=== PATIENT | female | born 1975 | race Caucasian/White ===

== ENCOUNTER 2016-07-21 13:25 | Inpatient (IN) | payer OTHER ==
[~2016-07-21] VITALS: Ht 165.1 cm; Wt 93.4 kg
[~2016-07-21 13:25] MED LIST: ABILIFY 5 MG TAB5 M1 PO; ACYCLOVIR 800800 MG PO; ADVAIR HFA 45-218 GM; ALBUTEROL NEB; ALPRAZOLAM2 MG PO; AMBEREN; AMITRIPTYLINE H10 M1 PO; AMITRIPTYLINE H25 M2; AMLODIPINE BESYL5 MG PO; ANTIDEPRESSANT; APAP W/CODEINE1 TA2 PO; ASCRIPTIN 325325 MG PO; ATENOLOL 25 MG25 M1 PO; ATENOLOL 50MG T50 M1 PO; ATENOLOL 50MG T50 MG PO; ATROVENT30 ML; BENADRYL ALLERG25 MG PO; BENADRYL25 MG PO; BENTYL 20 MG TA20 M1 PO; BENZONATATE100 MG; CAPSAICIN60 GM TP; CARAFATE 11 GM/10 M1 PO; CARISOPRODOL 3350 MG PO; CELEXA 20 MG TA20 M1 PO; CELEXA 20 MG TA20 MG PO; CIPROFLOXACIN500 M1 PO; CITALOPRAM; CITALOPRAM PO; CLONAZEPAM; CLONAZEPAM 1 MG1 M1 PO; CLONAZEPAM PO; DARVOCET-N 1001 EACH PO; DEXILANT60 MG; DIAZEPAM 10 MG10 M1 PO; DIOVAN40 MG PO; EPHEDRINE IV; EPIPEN0.3 MG/0.3 IM; FIORICET 50-321 EACH PO; HYDROCODON-ACE1 EAC7 PO; HYDROXYCHLOROQ200 M1 PO; IMITREX 50 MG T50 MG PO; KEFLEX500 MG PO; LEVOTHYROXINE0.05 MG PO; LISINOPRIL10 MG; LISINOPRIL10 MG PO; LISINOPRIL2.5 MG PO; LORTAB 5 MG/5001 TA1 PO; MACROBID 100 M100 M1 PO; MAGNES; MAGNES PO; NEW BP MED; NORCO 10-325 T1 EACH; NORCO 5-325 TA1 EACH PO; NORFLEX100 MG; NORFLEX100 MG IM; NORVASC 5 MG TAB5 MG; NORVASC10 MG PO; OLANZAPINE20 MG PO; ONDANSETRON HCL4 M2 PO; ONDANSETRON ODT4 MG PO; ORPHENADRINE C100 M2 IM; PEPCID40 MG PO; PERCOCET 5-3251 EACH PO; PREDNISONE 5 MG5 MG PO; PROAIR HFA8.5 GM IH; PROTONIX40 M1 PO; PULMICORT FLE180 MCG; QVAR HFA 880 MCG/UN1 INH; REGLAN 10 MG TA10 MG PO; TAMSULOSIN HCL0.4 M1 PO; TAMSULOSIN HCL0.4 MG PO; TOPAMAX 100 MG100 MG PO; TRAMADOL 50 MG50 MG PO; VALIUM10 MG PO; VALIUM5 MG PO; VENTOLIN17 GM; VERAMYST10 GM; VERAMYST10 GM NS; VERAPAMIL E.R240 M1 PO; VERAPAMIL HCL120 M1 PO; VERAPAMIL HCL180 MG PO; VIVACTIL10 MG PO; XANAX XR2 MG PO; XOPENEX0.31 MG/3; XOPENEX0.63 MG/3; XOPENEX1.25 MG/3; ZANTAC 150MG T150 M1 PO; ZANTAC 150MG T150 MG PO; ZOFRAN ODT4 MG PO; ZOFRAN4 MG PO; ZOFRAN8 MG PO; [UNRECOGNIZED DRUG - REMARK]
[2016-07-21 13:41] VITALS: BP 146/108
[2016-07-21 14:44] LABS: URINE BLOOD 1+ (Negative); URINE COLOR YELLOW; URINE GLUCOSE-RANDOM* NEGATIVE (Negative); URINE KETONES 1+ (Negative); URINE LEUKOCYTES-REFLEX 2+ (Negative); URINE PROTEIN (DIPSTICK) 2+ (Negative); URINE SPECIFIC GRAVITY >= 1.030 (1.003-1.035)
[2016-07-21 14:44] LABS: ABSOLUTE NEUTROPHILS 6.6 thou/uL (1.4-8.2); BASOPHILS 0.6 % (0.0-2.0); EOSINOPHILS 0.1 % (0.0-3.0); HEMATOCRIT 47.7 % (37.0-47.0); HEMOGLOBIN 16.9 gm/dL (12.0-15.0); LYMPHOCYTES 17.2 % (24.0-44.0); MANUAL DIFF NO; MCH 31.8 pg (26.0-34.0); MCHC 35.3 g/dL (28.0-37.0); MONOCYTES 6.5 % (1.0-8.0); POLYS 75.6 % (36.0-66.0); RBC 5.31 mil/uL (4.20-5.00); WBC 8.7 thou/uL (4.0-11.0)
[2016-07-21 14:48] LABS: URINE BILIRUBIN 2+ (Negative)
[2016-07-21 14:50] LABS: CASTS None Seen /LPF (None Seen); CRYSTALS None Seen /LPF (None Seen); SQUAMOUS 4-10 Moderate /LPF (0-3)
[2016-07-21 14:51] LABS: URINE RBC 0-2 Rare /HPF (0-2); URINE WBC-REFLEX 6-15 Few /HPF (0-5)
[2016-07-21 14:59] LABS: ALBUMIN 4.6 g/dL (3.4-5.0); CALCIUM 9.4 mg/dL (8.5-10.1); TOTAL BILIRUBIN 0.6 mg/dL (<0.1-1.0); TOTAL PROTEIN 9.3 g/dL (6.4-8.2)
[2016-07-21 15:04] LABS: PLATELET COUNT 154 thou/uL (150-400); PLATELET ESTIMATE NORMAL
[2016-07-21 15:06] LABS: POTASSIUM 2.8 mmol/L (3.5-5.1)
[2016-07-21 16:04] VITALS: BP 130/91
[2016-07-21] MEDS ORDERED: XANAX1 MG PO (16:20)
[2016-07-21 20:00] VITALS: BP 144/91
[2016-07-21] MEDS ORDERED: OLANZAPINE20 MG PO (22:41)
[2016-07-21 23:45] VITALS: BP 149/102
[2016-07-22 04:45] VITALS: BP 151/103
[2016-07-22 08:13] VITALS: BP 155/99
[2016-07-22 08:22] LABS: ALBUMIN 3.5 g/dL (3.4-5.0); CALCIUM 8.2 mg/dL (8.5-10.1); CREATININE 0.6 mg/dL (0.6-1.0)
[2016-07-22 16:03] VITALS: BP 138/71
[2016-07-22 20:40] VITALS: BP 131/78
[2016-07-23 04:16] LABS: HEMATOCRIT 40.4 % (37.0-47.0); MCH 31.4 pg (26.0-34.0); MCHC 35.1 g/dL (28.0-37.0); MCV 89.4 fL (80.0-100.0); RBC 4.52 mil/uL (4.20-5.00); RDW 11.7 % (10.5-14.5); WBC 6.9 thou/uL (4.0-11.0)
[2016-07-23 04:19] LABS: HEMOGLOBIN 14.2 gm/dL (12.0-15.0); MANUAL DIFF YES
[2016-07-23 04:23] LABS: ALBUMIN 3.5 g/dL (3.4-5.0); CREATININE 0.6 mg/dL (0.6-1.0); DIRECT BILIRUBIN 0.1 mg/dL (<0.1-0.3); POTASSIUM 3.3 mmol/L (3.5-5.1); TOTAL BILIRUBIN 0.5 mg/dL (<0.1-1.0); TOTAL PROTEIN 7.1 g/dL (6.4-8.2)
[2016-07-23 05:13] VITALS: BP 137/83
[2016-07-23 08:10] LABS: ABSOLUTE NEUTROPHILS 4.1 thou/uL (1.4-8.2); TOTAL CELL COUNT 100
[2016-07-23 08:12] LABS: LARGE PLATELETS FEW; PLATELET COUNT 116 thou/uL (150-400)
[2016-07-23 08:30] VITALS: BP 169/107
[2016-07-23 16:16] VITALS: BP 131/83
[2016-07-23 19:28] VITALS: BP 130/79
[2016-07-24 04:16] VITALS: BP 162/95
[2016-07-24 06:39] LABS: ALBUMIN 3.5 g/dL (3.4-5.0); CALCIUM 8.5 mg/dL (8.5-10.1); CREATININE 0.4 mg/dL (0.6-1.0); PHOSPHORUS 2.7 mg/dL (2.5-4.9); POTASSIUM 3.6 mmol/L (3.5-5.1)
[2016-07-24 07:34] VITALS: BP 155/90
[2016-07-24 15:56] VITALS: BP 145/71
[2016-07-24 20:23] VITALS: BP 154/80
[2016-07-25 02:30] VITALS: BP 134/72
[2016-07-25 07:35] VITALS: BP 147/91
[2016-07-25] MEDS ORDERED: VANCOMYCIN100 MG/ML PO (11:12)
[2016-07-25] MEDS ORDERED: PERCOCET PO (11:13)
[2016-07-25 11:42] VITALS: BP 147/91
[2016-07-25 11:43] VITALS: BP 147/91
[2016-07-25 11:45] VITALS: BP 147/91
== END 2016-07-25 13:35 | disposition home or self-care (01) | DRG 372 ==
LOC: ER 13:25 → EROBS 15:27 → 3N 15:27 → 5S 07-23 12:51
PROVIDERS: Emergency Medicine; Hospitalist
PROC: 05H633Z Insertion of Infusion Device into Left Subclavian Vein, Percutaneous Approach (ICD-10-PCS; principal; 2016-07-25)
DX: A04.7 Enterocolitis due to Clostridium difficile (principal); N17.9 Acute kidney failure, unspecified; N39.0 Urinary tract infection, site not specified; K92.1 Melena; I10 Essential (primary) hypertension; F43.10 Post-traumatic stress disorder, unspecified; J45.909 Unspecified asthma, uncomplicated; M32.9 Systemic lupus erythematosus, unspecified; E87.6 Hypokalemia; F41.9 Anxiety disorder, unspecified; K31.84 Gastroparesis; M79.7 Fibromyalgia; F32.9 Major depressive disorder, single episode, unspecified; G43.909 Migraine, unspecified, not intractable, without status migrainosus; E66.9 Obesity, unspecified; Z79.899 Other long term (current) drug therapy; Z88.2 Allergy status to sulfonamides; Z90.49 Acquired absence of other specified parts of digestive tract; Z87.11 Personal history of peptic ulcer disease; Z90.710 Acquired absence of both cervix and uterus; Z90.721 Acquired absence of ovaries, unilateral; Z87.891 Personal history of nicotine dependence; Z88.6 Allergy status to analgesic agent; Z88.1 Allergy status to other antibiotic agents; Z91.040 Latex allergy status; Z88.0 Allergy status to penicillin; Z88.8 Allergy status to other drugs, medicaments and biological substances; Z91.018 Allergy to other foods; Z68.34 Body mass index [BMI] 34.0-34.9, adult
CPT/HCPCS: 10096; 10785; 27001

== ENCOUNTER 2016-09-08 18:54 | Emergency (ER) | payer OTHER ==
[~2016-09-08] VITALS: Ht 165.1 cm; Wt 86.2 kg
[~2016-09-08 18:54] MED LIST changes: +PERCOCET PO; +VANCOMYCIN100 MG/ML PO; +XANAX1 MG PO
[2016-09-08 20:25] LABS: HEMOGLOBIN 15.9 gm/dL (12.0-15.0)
[2016-09-08 20:30] LABS: HEMATOCRIT 45.5 % (37.0-47.0); MCH 32.2 pg (26.0-34.0); MCHC 35.1 g/dL (28.0-37.0); MCV 91.8 fL (80.0-100.0); RBC 4.96 mil/uL (4.20-5.00); RDW 12.5 % (10.5-14.5); WBC 5.3 thou/uL (4.0-11.0)
[2016-09-08 20:39] LABS: ALBUMIN 3.9 g/dL (3.4-5.0); DIRECT BILIRUBIN 0.1 mg/dL (<0.1-0.3); TOTAL BILIRUBIN 0.4 mg/dL (<0.1-1.0); TOTAL PROTEIN 8.3 g/dL (6.4-8.2)
[2016-09-08 21:04] LABS: CREATININE 0.7 mg/dL (0.6-1.0); POTASSIUM 3.6 mmol/L (3.5-5.1)
[2016-09-08] MEDS ORDERED: VANCOCIN 250 M250 M1 PO (22:36)
[2016-09-08] MEDS ORDERED: NORCO 5-325 TA1 EACH PO (22:40)
[2016-09-08] MEDS ORDERED: ZOFRAN ODT4 MG PO (22:40)
[2016-09-08 23:09] VITALS: BP 138/70
== END 2016-09-08 23:11 | disposition home or self-care (01) ==
LOC: ER 18:54
PROVIDERS: Emergency Medicine
DX: R10.9 Unspecified abdominal pain (principal); R19.7 Diarrhea, unspecified; I10 Essential (primary) hypertension; J45.909 Unspecified asthma, uncomplicated; Z90.49 Acquired absence of other specified parts of digestive tract; Z90.711 Acquired absence of uterus with remaining cervical stump; G43.909 Migraine, unspecified, not intractable, without status migrainosus; M32.9 Systemic lupus erythematosus, unspecified; F43.10 Post-traumatic stress disorder, unspecified; Z98.890 Other specified postprocedural states; Z87.891 Personal history of nicotine dependence; Z88.6 Allergy status to analgesic agent; Z88.1 Allergy status to other antibiotic agents; Z88.8 Allergy status to other drugs, medicaments and biological substances; Z88.2 Allergy status to sulfonamides; Z91.048 Other nonmedicinal substance allergy status; Z91.018 Allergy to other foods

== ENCOUNTER 2017-07-06 22:48 | Emergency (ER) | payer OTHER ==
[~2017-07-06] VITALS: Ht 165.1 cm; Wt 89.8 kg
[~2017-07-06 22:48] MED LIST changes: +VANCOCIN 125 M125 M1 PO; +VANCOCIN 250 M250 M1 PO
[2017-07-06 22:59] VITALS: BP 153/109
[2017-07-06] MEDS ORDERED: CELEXA40 MG PO (23:04)
[2017-07-06] MEDS ORDERED: FLEXERIL PO (23:06)
[2017-07-06] MEDS ORDERED: NORCO 5-325 TA1 EACH PO ×2 (23:31→23:39)
== END 2017-07-06 23:46 | disposition home or self-care (01) ==
LOC: ER 22:48
DX: G89.18 Other acute postprocedural pain (principal); M25.512 Pain in left shoulder; I10 Essential (primary) hypertension; M79.7 Fibromyalgia; G43.909 Migraine, unspecified, not intractable, without status migrainosus; J45.909 Unspecified asthma, uncomplicated; Z90.49 Acquired absence of other specified parts of digestive tract; G40.909 Epilepsy, unspecified, not intractable, without status epilepticus; Z88.2 Allergy status to sulfonamides; Z88.6 Allergy status to analgesic agent; Z88.0 Allergy status to penicillin; Z88.1 Allergy status to other antibiotic agents; Z91.040 Latex allergy status

== ENCOUNTER 2017-09-17 22:12 | Emergency (ER) | payer OTHER ==
[~2017-09-17] VITALS: Ht 165.1 cm; Wt 89.8 kg
--- NOTE | ~2017-09-17 | EKG ---
[address] [address] [place] [address] ELECTROCARDIOGRAM REPORT Name: CAROLANN MCLAUGHLIN [id number] Admission: 09/17/17 Attend Phys: Discharge: 09/17/17 Date of : 77 Report #: [id number] THIS REPORT FOR: //name// [facility] ED Test Date: 2017-09-17 Test Time: 22:24:18 Pat Name: CAROLANN MCLAUGHLIN Department: Room: Gender: F Stained Glass Window Designer: maggy : 1975 Requested By: Apple Webster Order Number: [id number] MD: Silvio Mcnair Measurements Intervals [place] Rate: 113 P: 45 SD: 148 QRS: 100 QRSD: 110 T: -20 QT: 350 QTc: 480 Interpretive Statements Sinus tachycardia Inferior infarct, age indeterminate Poor R wave progression Compared to ECG 03/26/2016 20:47:54 Nonspecific change in the ST and T-wave segments Electronically Signed On 09-19-2017 8:13:44 CDT by Silvio Mcnair [email or web address] <ELECTRONICALLY SIGNED> By: Silvio Mcnair MD, [facility] 09/19/17 0813 23 23 Silvio Mcnair MD, [facility] /EPI
[~2017-09-17 22:12] MED LIST changes: +CELEXA40 MG PO; +FLEXERIL PO
[2017-09-17 23:00] LABS: ABSOLUTE NEUTROPHILS 9.2 thou/uL (1.4-8.2); BASOPHILS 0.8 % (0.0-2.0); EOSINOPHILS 0.6 % (0.0-3.0); HEMATOCRIT 47.9 % (37.0-47.0); HEMOGLOBIN 16.8 gm/dL (12.0-15.0); LYMPHOCYTES 18.8 % (24.0-44.0); MCH 30.9 pg (26.0-34.0); MCV 88.4 fL (80.0-100.0); PLATELET COUNT 136 thou/uL (150-400); POLYS 72.8 % (36.0-66.0); RBC 5.42 mil/uL (4.20-5.00); RDW 12.6 % (10.5-14.5); WBC 12.6 thou/uL (4.0-11.0)
[2017-09-17 23:06] LABS: CALCIUM 8.9 mg/dL (8.5-10.1); CREATININE 0.9 mg/dL (0.6-1.0)
[2017-09-17 23:46] VITALS: BP 160/100
== END 2017-09-17 23:47 | disposition home or self-care (01) ==
LOC: ER 22:12
PROVIDERS: Emergency Medicine
DX: T78.40XA Allergy, unspecified, initial encounter (principal); F41.9 Anxiety disorder, unspecified; E87.6 Hypokalemia; M32.9 Systemic lupus erythematosus, unspecified; I10 Essential (primary) hypertension; M79.7 Fibromyalgia; G43.909 Migraine, unspecified, not intractable, without status migrainosus; J45.909 Unspecified asthma, uncomplicated; Z90.89 Acquired absence of other organs; Z90.49 Acquired absence of other specified parts of digestive tract; Z90.710 Acquired absence of both cervix and uterus; Z90.721 Acquired absence of ovaries, unilateral; Z88.8 Allergy status to other drugs, medicaments and biological substances; Z88.6 Allergy status to analgesic agent; Z88.0 Allergy status to penicillin; Z88.2 Allergy status to sulfonamides; Z91.018 Allergy to other foods; Z88.1 Allergy status to other antibiotic agents; Z91.040 Latex allergy status

== ENCOUNTER 2018-01-09 18:33 | Emergency (ER) | payer OTHER ==
[~2018-01-09] VITALS: Ht 172.7 cm; Wt 89.8 kg
[~2018-01-09 18:33] MED LIST changes: +CLONIDINE HCL0.1 MG PO; +LIORESAL 10 MG10 MG PO
[2018-01-09 19:03] LABS: ABSOLUTE NEUTROPHILS 6.3 thou/uL (1.4-8.2); BASOPHILS 1.1 % (0.0-2.0); EOSINOPHILS 0.5 % (0.0-3.0); HEMATOCRIT 43.9 % (37.0-47.0); HEMOGLOBIN 15.2 gm/dL (12.0-15.0); LYMPHOCYTES 23.6 % (24.0-44.0); MCHC 34.7 g/dL (28.0-37.0); MCV 89.3 fL (80.0-100.0); MONOCYTES 9.6 % (1.0-8.0); PLATELET COUNT 105 thou/uL (150-400); POLYS 65.2 % (36.0-66.0); RBC 4.91 mil/uL (4.20-5.00); RDW 12.1 % (10.5-14.5); WBC 9.7 thou/uL (4.0-11.0)
[2018-01-09 19:10] LABS: CALCIUM 8.9 mg/dL (8.5-10.1); CREATININE 0.6 mg/dL (0.6-1.0); POTASSIUM 4.2 mmol/L (3.5-5.1)
[2018-01-09 21:19] VITALS: BP 138/101
== END 2018-01-09 21:20 | disposition home or self-care (01) ==
LOC: ER 18:33
PROVIDERS: Emergency Medicine
DX: R42 Dizziness and giddiness (principal); T44.5X5A Adverse effect of predominantly beta-adrenoreceptor agonists, initial encounter; R25.1 Tremor, unspecified; Y92.89 Other specified places as the place of occurrence of the external cause; M32.9 Systemic lupus erythematosus, unspecified; I10 Essential (primary) hypertension; M79.7 Fibromyalgia; G43.909 Migraine, unspecified, not intractable, without status migrainosus; J45.909 Unspecified asthma, uncomplicated; Z90.89 Acquired absence of other organs; Z90.49 Acquired absence of other specified parts of digestive tract; Z90.711 Acquired absence of uterus with remaining cervical stump; Z88.8 Allergy status to other drugs, medicaments and biological substances; Z88.6 Allergy status to analgesic agent; Z88.0 Allergy status to penicillin; Z91.018 Allergy to other foods; Z88.1 Allergy status to other antibiotic agents; Z88.4 Allergy status to anesthetic agent; Z91.040 Latex allergy status

== ENCOUNTER 2018-04-27 21:35 | Emergency (ER) | payer OTHER ==
[~2018-04-27] VITALS: Ht 175.3 cm; Wt 86.2 kg
[2018-04-27 23:36] LABS: HEMATOCRIT 46.6 % (37.0-47.0); MONOCYTES 7.4 % (1.0-8.0)
[2018-04-27 23:38] LABS: ABSOLUTE NEUTROPHILS 7.1 thou/uL (1.4-8.2); BASOPHILS 0.8 % (0.0-2.0); EOSINOPHILS 0.5 % (0.0-3.0); HEMOGLOBIN 16.3 gm/dL (12.0-15.0); LYMPHOCYTES 16.1 % (24.0-44.0); MCH 31.2 pg (26.0-34.0); MCV 89.3 fL (80.0-100.0); POLYS 75.2 % (36.0-66.0); RBC 5.22 mil/uL (4.20-5.00); RDW 12.5 % (10.5-14.5); WBC 9.4 thou/uL (4.0-11.0)
[2018-04-27 23:44] LABS: ANION GAP 13 mmol/L (7-16); BUN 12 mg/dL (7-18); CHLORIDE 103 mmol/L (98-107); CO2 24 mmol/L (21-32); CREATININE 0.7 mg/dL (0.6-1.0); GLUCOSE 112 mg/dL (74-106); SODIUM 140 mmol/L (136-145)
[2018-04-27 23:52] LABS: TROPONIN-I <0.06 ng/mL (<0.06)
[2018-04-28 00:03] LABS: LARGE PLATELETS SEVERAL; PLATELET COUNT 124 thou/uL (150-400); PLATELET ESTIMATE DECREASED
[2018-04-28 02:25] VITALS: BP 164/98
--- NOTE | 2018-04-28 12:02 | EKG ---
[place] [address] [employer] [facility] [facility] [place] [address] ELECTROCARDIOGRAM REPORT Name: CAROLANN MCLAUGHLIN [facility] [id number] ������������������ Admission: 04/27/18 ������������������ Attend Phys: Discharge: 04/28/18 ������������������ Date of : 77 Report #: [id number] ����������������������������������������������������������������� [id number] THIS REPORT FOR: //name// [facility] ED Test Date: 2018-04-27 Test Time: 21:42:38 Pat Name: CAROLANN MCLAUGHLIN Department: Room: Gender: F Diver Pumper: ELÍAS : 1975 Requested By: Harmeet Felix Order Number: [id number] MD: Donnie Boss Measurements Intervals [place] Rate: 82 P: 48 NJ: 151 QRS: 94 QRSD: 118 T: 5 QT: 407 QTc: 476 Interpretive Statements Sinus rhythm left atrial enlargement Left posterior fascicular block Inferior infarct age indeterminate Poor R-wave progression Baseline wander in lead(s) I,aVL Compared to ECG 11/10/2017 20:20:06 No significant changes Electronically Signed On 04-28-2018 12:02:15 HEEL CEMENTER by Donnie Boss [email or web address] ��������������������������������������������� <ELECTRONICALLY SIGNED> ���������������������������������������� By: Donnie Boss MD ��������������������������������������������� 04/28/18 1202 41 41 Donnie Boss MD /EPI
== END 2018-04-28 02:25 | disposition home or self-care (01) ==
LOC: ER 21:35
PROVIDERS: Emergency Medicine
DX: G43.909 Migraine, unspecified, not intractable, without status migrainosus (principal); R07.89 Other chest pain; M32.9 Systemic lupus erythematosus, unspecified; I10 Essential (primary) hypertension; M79.7 Fibromyalgia; J45.909 Unspecified asthma, uncomplicated; Z88.8 Allergy status to other drugs, medicaments and biological substances; Z88.6 Allergy status to analgesic agent; Z88.0 Allergy status to penicillin; Z88.2 Allergy status to sulfonamides; Z91.018 Allergy to other foods; Z88.1 Allergy status to other antibiotic agents; Z88.4 Allergy status to anesthetic agent; Z91.040 Latex allergy status; Z90.89 Acquired absence of other organs; Z90.49 Acquired absence of other specified parts of digestive tract; Z90.711 Acquired absence of uterus with remaining cervical stump; Z90.721 Acquired absence of ovaries, unilateral

== ENCOUNTER 2018-06-15 13:55 | Emergency (ER) | payer OTHER ==
[~2018-06-15] VITALS: Ht 165.1 cm; Wt 85.7 kg
[2018-06-15 14:46] LABS: ABSOLUTE NEUTROPHILS 4.2 thou/uL (1.4-8.2); BASOPHILS 0.3 % (0.0-2.0); EOSINOPHILS 0.8 % (0.0-3.0); HEMATOCRIT 41.3 % (37.0-47.0); HEMOGLOBIN 14.1 gm/dL (12.0-15.0); LYMPHOCYTES 23.7 % (24.0-44.0); MCH 30.6 pg (26.0-34.0); MCHC 34.2 g/dL (28.0-37.0); MCV 89.4 fL (80.0-100.0); MONOCYTES 9.9 % (1.0-8.0); POLYS 65.3 % (36.0-66.0); RBC 4.62 mil/uL (4.20-5.00); RDW 12.7 % (10.5-14.5); WBC 6.5 thou/uL (4.0-11.0)
[2018-06-15 14:55] LABS: CALCIUM 8.9 mg/dL (8.5-10.1); CREATININE 0.7 mg/dL (0.6-1.0); POTASSIUM 3.8 mmol/L (3.5-5.1)
[2018-06-15 15:01] LABS: ALBUMIN 3.4 g/dL (3.4-5.0); TOTAL BILIRUBIN 0.3 mg/dL (<0.1-1.0); TOTAL PROTEIN 7.2 g/dL (6.4-8.2)
[2018-06-15 15:06] LABS: PLATELET COUNT 100 thou/uL (150-400)
[2018-06-15 16:10] LABS: AMP/METHAMP Negative (Negative); BARBITURATES Negative (Negative); BENZODIAZEPINES POSITIVE (Negative); COCAINE Negative (Negative); METHADONE Negative (Negative); OPIATES Negative (Negative); PCP Negative (Negative)
[2018-06-15] MEDS ORDERED: LISINOPRIL20 MG PO (17:13)
[2018-06-15] MEDS ORDERED: NORCO 5-325 TA1 EACH PO (18:01)
[2018-06-15 18:06] VITALS: BP 101/67
--- NOTE | 2018-06-16 08:23 | EKG ---
[place] [address] [facility] [place] [address] ELECTROCARDIOGRAM REPORT Name: CAROLANN MCLAUGHLIN [facility] [id number] ������������������ Admission: 06/15/18 ������������������ Attend Phys: Discharge: 06/15/18 ������������������ Date of : 77 Report #: [id number] ����������������������������������������������������������������� [id number] THIS REPORT FOR: //name// [facility] ED Test Date: 2018-06-15 Test Time: 15:20:52 Pat Name: CAROLANN MCLAUGHLIN Department: Room: Gender: F Amusement Machine Mechanic: kf : 1975 Requested By: Douglas Solis Order Number: [id number] MD: Kofi Williamson Measurements Intervals [place] Rate: 63 P: 39 AR: 161 QRS: 64 QRSD: 118 T: 13 QT: 443 QTc: 454 Interpretive Statements Sinus rhythm Probable left atrial enlargement Nonspecific intraventricular conduction delay Inferior infarct, old Compared to ECG 04/27/2018 21:42:38 Intraventricular conduction delay now present Left posterior fascicular block no longer present Poor R-wave progression no longer present Myocardial infarct finding still present Electronically Signed On 06-16-2018 8:23:03 CDT by Kofi Williamson [email or web address] ��������������������������������������������� <ELECTRONICALLY SIGNED> ���������������������������������������� By: Kofi Williamson MD ��������������������������������������������� 06/16/18 0823 1520 1520 Kofi Williamson MD /EPI
== END 2018-06-15 18:07 | disposition home or self-care (01) ==
LOC: ER 13:55
PROVIDERS: Physician Assistant
DX: R44.0 Auditory hallucinations (principal); R44.1 Visual hallucinations; F41.9 Anxiety disorder, unspecified; M32.9 Systemic lupus erythematosus, unspecified; I10 Essential (primary) hypertension; M79.7 Fibromyalgia; G43.909 Migraine, unspecified, not intractable, without status migrainosus; J45.909 Unspecified asthma, uncomplicated; G40.909 Epilepsy, unspecified, not intractable, without status epilepticus; Z79.899 Other long term (current) drug therapy; Z88.0 Allergy status to penicillin; Z88.1 Allergy status to other antibiotic agents; Z88.2 Allergy status to sulfonamides; Z88.8 Allergy status to other drugs, medicaments and biological substances; Z91.018 Allergy to other foods; Z88.5 Allergy status to narcotic agent; Z91.040 Latex allergy status

== ENCOUNTER 2018-09-08 17:10 | Emergency (ER) | payer OTHER ==
[~2018-09-08] VITALS: Ht 162.6 cm; Wt 89.8 kg
[~2018-09-08 17:10] MED LIST changes: +LISINOPRIL20 MG PO
[2018-09-08 18:10] LABS: ANION GAP 10 mmol/L (7-16); BUN 11 mg/dL (7-18); CALCIUM 8.5 mg/dL (8.5-10.1); CHLORIDE 105 mmol/L (98-107); CO2 21 mmol/L (21-32); CREATININE 0.6 mg/dL (0.6-1.0); GLUCOSE 152 mg/dL (74-106); POTASSIUM 4.3 mmol/L (3.5-5.1); SODIUM 136 mmol/L (136-145)
[2018-09-08 18:21] LABS: ALBUMIN 3.1 g/dL (3.4-5.0); MAGNESIUM 1.9 mg/dL (1.8-2.4); SALICYLATE < 2.8 mg/dL (2.8-20.0); SGOT 30 U/L (15-37); TOTAL BILIRUBIN 0.2 mg/dL (<0.1-1.0); TOTAL PROTEIN 7.1 g/dL (6.4-8.2); TROPONIN-I <0.06 ng/mL (<0.06)
[2018-09-08 18:35] LABS: SGPT 52 U/L (30-65)
[2018-09-08 18:37] LABS: URINE BILIRUBIN NEGATIVE (Negative); URINE BLOOD NEGATIVE (Negative); URINE CLARITY CLEAR; URINE COLOR YELLOW; URINE GLUCOSE-RANDOM* NEGATIVE (Negative); URINE KETONES NEGATIVE (Negative); URINE LEUKOCYTES-REFLEX NEGATIVE (Negative); URINE NITRITE-REFLEX NEGATIVE (Negative); URINE PROTEIN (DIPSTICK) NEGATIVE (Negative); URINE SPECIFIC GRAVITY >= 1.030 (1.005-1.035); URINE UROBILINOGEN 0.2 E.U./dl (0.2-1.0)
[2018-09-08 18:45] LABS: AMP/METHAMP Negative (Negative); BARBITURATES Negative (Negative); BENZODIAZEPINES POSITIVE (Negative); COCAINE Negative (Negative); METHADONE Negative (Negative); OPIATES Negative (Negative); PCP Negative (Negative)
[2018-09-08 19:12] LABS: HEMATOCRIT 40.4 % (37.0-47.0); HEMOGLOBIN 13.8 gm/dL (12.0-15.0); MCH 30.7 pg (26.0-34.0); MCHC 34.1 g/dL (28.0-37.0); PLATELET COUNT 198 thou/uL (150-400); RBC 4.49 mil/uL (4.20-5.00); RDW 11.8 % (10.5-14.5); WBC 4.9 thou/uL (4.0-11.0)
[2018-09-08 19:31] VITALS: BP 147/81
[2018-09-08 19:37] LABS: ABSOLUTE NEUTROPHILS 2.9 thou/uL (1.4-8.2); LARGE PLATELETS FEW
--- NOTE | 2018-09-09 11:13 | EKG ---
[facility] [address] [place] [address] ELECTROCARDIOGRAM REPORT Name: CAROLANN MCLAUGHLIN [facility] [id number] ������������������ Admission: 09/08/18 ������������������ Attend Phys: Discharge: 09/08/18 ������������������ Date of : 77 Report #: [id number] ����������������������������������������������������������������� [id number] THIS REPORT FOR: //name// [facility] ED Test Date: 2018-09-08 Test Time: 17:30:47 Pat Name: CAROLANN MCLAUGHLIN Department: Room: Gender: F Seeing Eye Dog Teacher: TABATHA : 1975 Requested By: Edward Crawford Order Number: [id number] MD: Silvio Mcnair Measurements Intervals [place] Rate: 64 P: 45 AL: 167 QRS: 70 QRSD: 114 T: 62 QT: 435 QTc: 449 Interpretive Statements Sinus rhythm Small inferior Q waves Nonspecific intraventricular conduction delay Baseline wander in lead(s) V2 Compared to ECG 06/15/2018 15:20:52 No significant change was found Electronically Signed On 09-09-2018 11:13:15 CDT by Silvio Mcnair [email or web address] ��������������������������������������������� <ELECTRONICALLY SIGNED> ���������������������������������������� By: Silvio Mcnair MD, [facility] ��������������������������������������������� 09/09/18 1113 1730 1730 Silvio Mcnair MD, [facility] /EPI
== END 2018-09-08 20:10 | disposition home or self-care (01) ==
LOC: ER 17:10
PROVIDERS: Emergency Medicine
DX: T46.5X1A Poisoning by other antihypertensive drugs, accidental (unintentional), initial encounter (principal); T42.4X1A Poisoning by benzodiazepines, accidental (unintentional), initial encounter; T44.7X1A Poisoning by beta-adrenoreceptor antagonists, accidental (unintentional), initial encounter; M32.9 Systemic lupus erythematosus, unspecified; I10 Essential (primary) hypertension; M79.7 Fibromyalgia; J45.909 Unspecified asthma, uncomplicated; G43.909 Migraine, unspecified, not intractable, without status migrainosus; Z90.89 Acquired absence of other organs; Z90.49 Acquired absence of other specified parts of digestive tract; Z90.711 Acquired absence of uterus with remaining cervical stump; Z90.721 Acquired absence of ovaries, unilateral; Z88.8 Allergy status to other drugs, medicaments and biological substances; Z88.6 Allergy status to analgesic agent; Z88.0 Allergy status to penicillin; Z88.2 Allergy status to sulfonamides; Z88.1 Allergy status to other antibiotic agents; Z91.040 Latex allergy status; Z91.018 Allergy to other foods; Y92.89 Other specified places as the place of occurrence of the external cause

== ENCOUNTER 2018-09-17 15:51 | Emergency (ER) | payer OTHER ==
[~2018-09-17] VITALS: Ht 162.6 cm; Wt 86.2 kg
[2018-09-17 18:23] VITALS: BP 139/79
[2018-09-17] MEDS ORDERED: NORCO 5-325 TA1 EAC1 PO (18:34)
== END 2018-09-17 19:04 | disposition home or self-care (01) ==
LOC: ER 15:51
DX: S16.1XXA Strain of muscle, fascia and tendon at neck level, initial encounter (principal); I10 Essential (primary) hypertension; M79.7 Fibromyalgia; G43.909 Migraine, unspecified, not intractable, without status migrainosus; J45.909 Unspecified asthma, uncomplicated; G40.909 Epilepsy, unspecified, not intractable, without status epilepticus; Z90.49 Acquired absence of other specified parts of digestive tract; Z90.710 Acquired absence of both cervix and uterus; Z88.0 Allergy status to penicillin; Z88.2 Allergy status to sulfonamides; Z88.6 Allergy status to analgesic agent; Z88.8 Allergy status to other drugs, medicaments and biological substances; X58.XXXA Exposure to other specified factors, initial encounter; Y93.89 Activity, other specified; Y92.89 Other specified places as the place of occurrence of the external cause; Y99.8 Other external cause status

== ENCOUNTER 2018-10-05 | Emergency (ER) | payer OTHER ==
[~2018-10-05] VITALS: Ht 165.1 cm; Wt 89.8 kg
[~2018-10-05] MED LIST changes: +NORCO 5-325 TA1 EAC1 PO
[2018-10-05] MEDS ORDERED: CELEXA20 MG PO (00:21)
[2018-10-05] MEDS ORDERED: DIPHENHIST50 MG PO (00:22)
[2018-10-05] MEDS ORDERED: CARVEDILOL12.5 MG (00:23)
[2018-10-05 00:53] LABS: ABSOLUTE NEUTROPHILS 4.4 thou/uL (1.4-8.2); BASOPHILS 0.3 % (0.0-2.0); EOSINOPHILS 1.1 % (0.0-3.0); HEMATOCRIT 40.8 % (37.0-47.0); HEMOGLOBIN 13.8 gm/dL (12.0-15.0); LYMPHOCYTES 24.2 % (24.0-44.0); MCH 30.6 pg (26.0-34.0); MCHC 33.9 g/dL (28.0-37.0); MCV 90.3 fL (80.0-100.0); MONOCYTES 9.9 % (1.0-8.0); PLATELET COUNT 121 thou/uL (150-400); POLYS 64.5 % (36.0-66.0); RBC 4.51 mil/uL (4.20-5.00); RDW 11.9 % (10.5-14.5); WBC 6.9 thou/uL (4.0-11.0)
[2018-10-05 01:02] LABS: ANION GAP 9 mmol/L (7-16); BUN 13 mg/dL (7-18); CALCIUM 8.9 mg/dL (8.5-10.1); CHLORIDE 102 mmol/L (98-107); CO2 24 mmol/L (21-32); CREATININE 0.7 mg/dL (0.6-1.0); GLUCOSE 207 mg/dL (74-106); POTASSIUM 4.2 mmol/L (3.5-5.1); SODIUM 135 mmol/L (136-145)
[2018-10-05 01:02] LABS: URINE BILIRUBIN NEGATIVE (Negative); URINE BLOOD NEGATIVE (Negative); URINE CLARITY CLOUDY; URINE COLOR YELLOW; URINE GLUCOSE-RANDOM* 2+ (Negative); URINE KETONES NEGATIVE (Negative); URINE LEUKOCYTES-REFLEX NEGATIVE (Negative); URINE NITRITE-REFLEX NEGATIVE (Negative); URINE PROTEIN (DIPSTICK) NEGATIVE (Negative); URINE SPECIFIC GRAVITY >= 1.030 (1.005-1.035); URINE UROBILINOGEN 0.2 E.U./dl (0.2-1.0)
[2018-10-05] MEDS ORDERED: TRESIBA100 UNIT/1 SUBQ (01:05)
[2018-10-05 01:08] LABS: ALBUMIN 3.2 g/dL (3.4-5.0); DIRECT BILIRUBIN < 0.1 mg/dL (<0.1-0.3); LIPASE 122 U/L (73-393); SGOT 18 U/L (15-37); SGPT 36 U/L (30-65); TOTAL BILIRUBIN 0.2 mg/dL (<0.1-1.0); TOTAL PROTEIN 7.4 g/dL (6.4-8.2)
[2018-10-05 02:24] VITALS: BP 134/72
== END 2018-10-05 02:26 | disposition home or self-care (01) ==
LOC: ER
PROVIDERS: Emergency Medicine
DX: E11.65 Type 2 diabetes mellitus with hyperglycemia (principal); I10 Essential (primary) hypertension; J45.909 Unspecified asthma, uncomplicated; G43.909 Migraine, unspecified, not intractable, without status migrainosus; M79.7 Fibromyalgia; M32.9 Systemic lupus erythematosus, unspecified; Z90.49 Acquired absence of other specified parts of digestive tract; Z90.710 Acquired absence of both cervix and uterus; Z90.89 Acquired absence of other organs; Z79.4 Long term (current) use of insulin; Z88.0 Allergy status to penicillin; Z88.2 Allergy status to sulfonamides; Z91.040 Latex allergy status; Z88.1 Allergy status to other antibiotic agents; Z88.6 Allergy status to analgesic agent; Z91.018 Allergy to other foods; Z88.8 Allergy status to other drugs, medicaments and biological substances

== ENCOUNTER 2018-10-30 04:11 | Inpatient (IN) | payer OTHER ==
[~2018-10-30] VITALS: Ht 165.1 cm; Wt 103.9 kg
[2018-10-30] VITALS (9 sets, daily range): BP systolic 161–188; BP diastolic 75–114
[~2018-10-30 04:11] MED LIST changes: +CARVEDILOL12.5 MG; +CELEXA20 MG PO; +DIPHENHIST50 MG PO; +TRESIBA100 UNIT/1 SUBQ
--- NOTE | 2018-10-30 04:19 | NUR ---
NOTIFIED SPOUSE TO BRING MEDICATIONS IN, EMS DID NOT TAKE LOOK AT MEDS ARE UNAWARE OF ANTISEIZURE MEDS. PT CANNOT VERBALIZE NAMES OF MEDICATIONS
[2018-10-30] MEDS ORDERED: HUMALOG100 UNIT/1 SUBQ (04:32)
[2018-10-30] MEDS ORDERED: REDNESS RELIEVE15 ML OPHTHALMIC (04:33)
[2018-10-30] MEDS ORDERED: AYR50 ML INH (04:35)
[2018-10-30] MEDS ORDERED: ZOFRAN ODT4 MG PO (04:35)
[2018-10-30 05:05] LABS: ABSOLUTE NEUTROPHILS 10.4 thou/uL (1.4-8.2); BASOPHILS 0.5 % (0.0-2.0); EOSINOPHILS 0.1 % (0.0-3.0); HEMATOCRIT 43.6 % (37.0-47.0); HEMOGLOBIN 14.7 gm/dL (12.0-15.0); LYMPHOCYTES 11.4 % (24.0-44.0); MCH 30.2 pg (26.0-34.0); MCHC 33.8 g/dL (28.0-37.0); MCV 89.4 fL (80.0-100.0); MONOCYTES 7.7 % (1.0-8.0); PLATELET COUNT 152 thou/uL (150-400); POLYS 80.3 % (36.0-66.0); RBC 4.88 mil/uL (4.20-5.00); RDW 12.4 % (10.5-14.5); WBC 12.9 thou/uL (4.0-11.0)
[2018-10-30 05:20] LABS: ANION GAP 17 mmol/L (7-16); BUN 15 mg/dL (7-18); CALCIUM 9.3 mg/dL (8.5-10.1); CHLORIDE 102 mmol/L (98-107); CO2 20 mmol/L (21-32); CREATININE 0.9 mg/dL (0.6-1.0); GLUCOSE 197 mg/dL (74-106); POTASSIUM 3.8 mmol/L (3.5-5.1); SODIUM 139 mmol/L (136-145)
[2018-10-30 05:29] LABS: MAGNESIUM 2.5 mg/dL (1.8-2.4); TROPONIN-I <0.06 ng/mL (<0.06)
[2018-10-30 05:49] LABS: LARGE PLATELETS OCCASIONAL
[2018-10-30 06:00] LABS: AMP/METHAMP Negative (Negative); BARBITURATES Negative (Negative); BENZODIAZEPINES POSITIVE (Negative); COCAINE Negative (Negative); METHADONE Negative (Negative); OPIATES Negative (Negative); PCP Negative (Negative)
--- NOTE | 2018-10-30 16:49 | NUR ---
ASSUMED CARE OF PATIENT AROUND 0900 WHEN PATIENT WAS ADMITTED TO THE FLOOR. PATIENT ADMITTED FOR SEEMINGLY PSUEDO-SEIZURES. PATIENT HAS TREMORS IN LEFT LEG AND REFRAINS FROM USING LEFT HAND. PATIENT DESCRIBED DECREASED SENSATION ON HER LEFT LATERAL SIDE ON INITIAL ASSESSMENT. PATIENT'S AND DAUGHTER VISITED TODAY. NEUROLOGY WAS CONSULTED AND PHYSICIAN SAID CLIENT IS NOT HAVING SEIZURES AND ORDERED LUMBAR CT FOR REPORTED BACK PAIN. LUMBAR CT DIDN'T SHOW ANYTHING SIGNIFICANT. PATIENT WAS AT [facility] A WEEK AGO FOR BLOOD PRESSURE ISSUES. REQUEST FOR RECORDS WAS FAXED TO [facility] TO SEARCH FOR FURTHER DETAILS.
[2018-10-31] VITALS (8 sets, daily range): BP systolic 153–193; BP diastolic 63–105
--- NOTE | 2018-10-31 00:45 | NUR ---
ASSUMED CARE OF PATIENT AT 1900. BP ELEVATED, HR ELEVATED. NURSE PRACTITIONER NOTIFIED. ORDER FOR LOPRESSOR OBTAINED. HR REDUCED SLIGHTLY. CONTINUED TO MONITOR PATIENT. ASKED WHEN SHE HAD VOIDED LAST, STATES IT WAS IN THE MORNING. BLADDER SCAN SHOWED GREATER THAN 500 ML. PATIENT AGREEABLE TO BEDPAN SINCE SHE HAS LITTLE TO NO STRENGTH IN LEFT LEG. VOIDED 300 ML. WILL BLADDER SCAN AGAIN IF UNABLE TO VOID WITHOUT RESULTS. STATES SHE TAKES 4 MG OF XANAX, HOWEVER HAS NOT BEEN UNABLE TO TAKE IT CONSISTENTLY DUE TO VOMITTING. DOES SAY SHE HAS BEEN TAKING HER BLOOD PRESSURE MEDICATIONS WITHOUT INCIDENT. IS VERY TEARFUL AND DOESN'T UNDERSTAND WHY HER MEDS ARE BEING CHANGED CONSTANTLY. STATES THAT HER BELIEVES SHE HAS SERATONIN SYNDROME. DISCUSSED COMMON SYMPTOMS. PATIENT STATES SHE HAS BEEN OFF AND ON HER CYMBALTA. WILL CONTINUE TO MONITOR HR AND BP WELL URINE OUTPUT.
[2018-10-31 05:33] LABS: CALCIUM 8.7 mg/dL (8.5-10.1); CREATININE 0.4 mg/dL (0.6-1.0)
[2018-10-31 05:47] LABS: POTASSIUM 4.1 mmol/L (3.5-5.1)
--- NOTE | 2018-10-31 09:10 | EKG ---
[address] [place] [address] ELECTROCARDIOGRAM REPORT Name: CAROLANN MCLAUGHLIN Room #: 362-P ADM IN M.R.#: [id number] Admission: 10/30/18 Attend Phys: Yoanna Johnson MD Discharge: Date of : 77 Report #: [id number] THIS REPORT FOR: //name// [facility] ED Test Date: 2018-10-30 Test Time: 05:53:33 Pat Name: CAROLANN MCLAUGHLIN Department: Room: 362 Gender: F Flight Tower Dispatcher: walter ordonez : 1975 Requested By: Harmeet Felix Order Number: [id number] MD: Kofi Williamson Measurements Intervals [place] Rate: 121 P: 57 AK: 111 QRS: 100 QRSD: 103 T: 41 QT: 434 QTc: 616 Interpretive Statements Sinus tachycardia Left posterior fascicular block Consider left ventricular hypertrophy Electronically Signed On 10-31-2018 9:10:07 CDT by Kofi Williamson [email or web address] <ELECTRONICALLY SIGNED> By: Kofi Williamson MD 10/31/18 0910 0553 0553 Kofi Williamson MD /THALIA
[2018-10-31 09:15] LABS: HEMOGLOBIN 14.7 gm/dL (12.0-15.0); MCH 30.5 pg (26.0-34.0); MCHC 34.2 g/dL (28.0-37.0); MCV 89.2 fL (80.0-100.0); RBC 4.83 mil/uL (4.20-5.00); RDW 12.8 % (10.5-14.5); WBC 11.4 thou/uL (4.0-11.0)
--- NOTE | 2018-10-31 17:52 | NUR ---
PT VERY WEAK...REPORTS WEAKNESS TO LT LEG SINCE ADMIT...MRI NEG...PT WORKED WITH PATIENT AND SHE WAS VERY TACHCARDIC 130'S...
[2018-11-01 03:41] VITALS: BP 146/77
[2018-11-01 05:36] LABS: HEMATOCRIT 41.3 % (37.0-47.0); HEMOGLOBIN 14.3 gm/dL (12.0-15.0); MCH 30.8 pg (26.0-34.0); MCHC 34.6 g/dL (28.0-37.0); MCV 88.9 fL (80.0-100.0); RBC 4.65 mil/uL (4.20-5.00); RDW 12.5 % (10.5-14.5); WBC 7.8 thou/uL (4.0-11.0)
[2018-11-01 05:47] LABS: CALCIUM 8.5 mg/dL (8.5-10.1); CREATININE 0.5 mg/dL (0.6-1.0); POTASSIUM 3.2 mmol/L (3.5-5.1)
--- NOTE | 2018-11-01 06:43 | NUR ---
ASSUMED CARE AT 1900. PT LETHARGIC BUT EASILY AROUSEABLE. C/O PAIN IN LEFT LEG; PLACED LIDODERM PATCH TO LEFT THIGH. DENIES SOB OR NAUSEA. FALL AND SEIZURE PRECAUTIONS IN PLACE. HAS BEEN SR ON TELE, HR RUNS 80'S EXCEPT WITH ANY ACTIVITY, AND SHE TACHS UP TO 130'S; TAKES A FEW MINUTES TO RECOVER, SITTING IN THE 110-120 REGION FOR SEVERAL MINUTES BEFORE DROPPING BACK BELOW 100. ENCOURAGED PT TO GET UP TO BSC TO FULLY EMPTY BLADDER. HS BLOOD SUGAR 121, NO INSULIN GIVEN. AM LABS SHOWED LOW POTASSIUM, OBTAINED ORDER FOR REPLACEMENT. NO OTHER CONCERNS, WILL CONTINUE TO MONITOR.
[2018-11-01 07:45] VITALS: BP 151/91
--- NOTE | 2018-11-01 08:38 | NUR ---
ASSESSMENT: CM REVIEWED CHART AND MET WITH PATIENT AT THE BEDSIDE. PT IS ALERT AND ORIENTED X4. PT WAS ADMITTED FOR POSSIBLE SEIZURE. EEG WAS DONE AND UNREMARKABLE. PT IS STILL HAVING SOME LEFT LEG WEAKNESS AND WORKING WITH PHYSICAL THERAPY. PT REPORTS LIVING IN AN APT WITH HER DAUGHTER AND . PT REPORTS ABOUT 14 STEPS WITH HANDRAILS TO ENTER THE APT AND NO STEPS ONCE INSIDE. PT REPORTS AMBULATING INDEPENDENTLY AND DOES NOT HAVE ANY DME. PT REPORTS SHE HAS NOT HAD HH IN THE PAST OR BEEN TO REHAB. CM DISCUSSED ROLE. PT DOES NOT FEEL SHE WILL HAVE ANY NEEDS. CM WILL SEE HOW PATIENT PROGRESSES WITH THERAPY AND ASSIST NEEDED.
[2018-11-01 12:08] VITALS: BP 122/75
[2018-11-01 16:46] VITALS: BP 134/54
[2018-11-01 19:27] VITALS: BP 150/68
[2018-11-02 03:37] VITALS: BP 130/78
[2018-11-02 06:14] LABS: CREATININE 0.5 mg/dL (0.6-1.0); TOTAL BILIRUBIN 0.3 mg/dL (<0.1-1.0); TOTAL PROTEIN 6.5 g/dL (6.4-8.2)
--- NOTE | 2018-11-02 07:10 | NUR ---
ASSUMED CARE AT 1900. PT REPORTS MODERATE PAIN IN LEFT THIGH, BUT STATES SHE IS TRYING TO "WORK THROUGH IT." LIDOCAINE PATCH APPLIED AT HS. DENIES SOB OR NAUSEA. UP TO TOILET WITH MINIMAL ASSIST. ASKED FOR SNACK AT HS, GIVEN SANDWICH BOX; BLOOD SUGAR 136, NO TREATMENT INDICATED. IV FLUIDS INFUSING OVERNIGHT. NO OTHER CONCERNS, SHIFT REPORT GIVEN AT 0700.
[2018-11-02 07:36] VITALS: BP 159/108
[2018-11-02 12:06] VITALS: BP 99/57
--- NOTE | 2018-11-02 14:00 | NUR ---
PATIENT TRANSFERRED FROM [facility], REPORT RECEIVED FROM MICHAEL/RN. PATIENT ALERT AND ORIENTED X 4. PATIENT UP SBA. PATIENT HAS RIGHT FOREARM IV WITH NS AT 125CC/HR. PATIENT C/O DISCOMFORT WITH LEFT THIGH, TYLENOL ORDERED PRN, NOTIFIED DR NARANJO,FOR PAIN MEDS SHE STATES GIVE TYLENOL AT THIS TIME, NO NEW ORDERS RECEIVED. LIDOCAINE PATCH APPLIED TO LEFT THIGH AT HS. BLOOD SUGAR MONITORING ORDER, S/S INSULIN GIVEN NEEDED. WILL CONTINUE TO MONITOR.
[2018-11-02] MEDS ORDERED: AMLODIPINE BESY10 MG PO (14:40)
[2018-11-02] MEDS ORDERED: MIRALAX17 GM PO (14:41)
[2018-11-02] MEDS ORDERED: FOLIC ACID 1 MG1 MG PO (14:42)
[2018-11-02] MEDS ORDERED: B-12500 MCG PO (14:42)
[2018-11-02] MEDS ORDERED: NORCO 5-325 TA1 EAC1 PO (14:43)
[2018-11-02] MEDS ORDERED: CYCLOBENZAPRINE5 MG PO (14:44)
[2018-11-02] MEDS ORDERED: LIDODERM1 EACH TRANSDERM (14:45)
[2018-11-02] MEDS ORDERED: CLONIDINE HCL0.3 M3 PO (18:23)
[2018-11-02] MEDS ORDERED: LOTENSIN20 MG PO (18:23)
[2018-11-02 19:31] VITALS: BP 99/57
--- NOTE | 2018-11-02 20:07 | NUR ---
PATIENT DISCHARGED TO HOME, ALL SCRIPTS AND DISCHARGE PAPERWORK SENT WITH THE PATIENT, ALL PERSONAL BELONGINGS SENT WITH THE PATIENT. RIGHT FOREARM IV DISCONTINUED PRIOR TO DISCHARGE.
[2018-11-03 01:08] LABS: GLYCOHEMOGLOBIN (HGB A1C) 7.1 % (4.8-5.6)
--- NOTE | 2018-11-03 11:06 | HC ---
[facility] [place] [address] CONSULTATION Name: CAROLANN MCLAUGHLIN Paty Room #: 453-P [facility] IN M.R.#: [id number] Admission: 10/30/18 Attend Phys: Yoanna Johnson MD Discharge: 11/02/18 Date of : 77 Report #: [id number] THIS REPORT FOR: //name// CC: Thierry Johnson CHIEF COMPLAINT: Diffuse low back and left lower extremity pain and weakness with history of seizure, anxiety and PTSD and recent fall. This patient was admitted on 10/30/2018 after her discovered her somewhat unresponsive on their bed. She subsequently stated she tried to retrieve a large mirror which was falling from the wall and sustained some sort of stress to her back and legs. I note a complex history including history of seizures, anxiety, PTSD and chronic disability. She was recently admitted at [facility] for seizures and/or chronic low back pain. HISTORY OF PRESENT ILLNESS: At the time of this evaluation, she apparently presented with some confusion and some jerking movements of the lower extremity and her tentative diagnosis was seizure. She had been evaluated by Neurology and felt not to have an active seizure disorder at this time. She has had CT scan of the back, which shows moderate multilevel degenerative change without evidence of fracture or disk herniation. I have been asked to see her for evaluation of possible orthopedic injuries involving the left lower extremity. At the time of my evaluation, she is heavy, deconditioned and poorly cooperative. She is sitting upright in bed and moving both lower extremities well. She seems to have a normal movement of the left hip, knee and ankle. She notes some mild discomfort diffusely in the left thigh, but there is no bruising or swelling. She has minimal discomfort with movement of the left knee, which seems stable and well aligned. The calf reveals no bruising or swelling. She has good movement of the left foot and toes in dorsiflexion and plantar flexion. OBJECTIVE: Neurologic exam appears to be normal. In summary, I believe this patient has significant chronic symptoms and some generalized symptom magnification as a result of anxiety and PTSD. I see no evidence of a significant structural injury involving either a bony injury nor a significant soft tissue injury. She may have a minor sprain or strain of the left thigh with some muscular irritability. This is not severe and would not require ongoing hospital admission. I understand that she probably does not have an active seizure process at this point, but would defer that issue to the neurologist. From an orthopedic surgical standpoint, there is really no evidence of low back injury or disk injury or radiculopathy. I think conservative management with physical therapy and activity would be most appropriate. She can probably be managed most effectively by her primary care [address] [address] CONSULTATION Name: ARNOLDOCAROLANN Paty Room #: 453-P [facility] IN M.R.#: [id number] Admission: 10/30/18 Attend Phys: Yoanna Johnson MD Discharge: 11/02/18 Date of : 77 Report #: [id number] physician and psychiatrist as an outpatient. I do not think I have anything further to offer from an orthopedic surgical standpoint. <ELECTRONICALLY SIGNED> By: Case Saenz MD 11/03/18 1106 1749 0306 Case Saenz MD /nt
== END 2018-11-02 20:09 | disposition home or self-care (01) | DRG 558 ==
LOC: ER 04:11 → EROBS 06:19 → 3W 06:19 → 4W 11-02 10:58
PROVIDERS: Emergency Medicine; Internal Medicine; ADMIT Internal Medicine
DX: M62.82 Rhabdomyolysis (principal); I10 Essential (primary) hypertension; G43.909 Migraine, unspecified, not intractable, without status migrainosus; J45.909 Unspecified asthma, uncomplicated; S86.912A Strain of unspecified muscle(s) and tendon(s) at lower leg level, left leg, initial encounter; E66.9 Obesity, unspecified; G40.909 Epilepsy, unspecified, not intractable, without status epilepticus; F43.10 Post-traumatic stress disorder, unspecified; E11.65 Type 2 diabetes mellitus with hyperglycemia; F41.9 Anxiety disorder, unspecified; F32.9 Major depressive disorder, single episode, unspecified; Z90.49 Acquired absence of other specified parts of digestive tract; Z90.711 Acquired absence of uterus with remaining cervical stump; Z90.721 Acquired absence of ovaries, unilateral; Z88.6 Allergy status to analgesic agent; Z88.1 Allergy status to other antibiotic agents; Z91.040 Latex allergy status; Z88.2 Allergy status to sulfonamides; Z88.8 Allergy status to other drugs, medicaments and biological substances; Z91.018 Allergy to other foods; Z87.891 Personal history of nicotine dependence; X58.XXXA Exposure to other specified factors, initial encounter; Y93.89 Activity, other specified; Y92.89 Other specified places as the place of occurrence of the external cause; Y99.8 Other external cause status; Z68.38 Body mass index [BMI] 38.0-38.9, adult
CPT/HCPCS: 10879

== ENCOUNTER 2018-11-29 13:52 | Emergency (ER) | payer OTHER ==
[~2018-11-29] VITALS: Ht 165.1 cm; Wt 99.8 kg
[~2018-11-29 13:52] MED LIST changes: +AMLODIPINE BESY10 MG PO; +AYR50 ML INH; +B-12500 MCG PO; +CLONIDINE HCL0.3 M3 PO; +CYCLOBENZAPRINE5 MG PO; +FOLIC ACID 1 MG1 MG PO; +HUMALOG100 UNIT/1 SUBQ; +LIDODERM1 EACH TRANSDERM; +LOTENSIN20 MG PO; +MIRALAX17 GM PO; +REDNESS RELIEVE15 ML OPHTHALMIC
[2018-11-29 15:46] LABS: HEMATOCRIT 44.6 % (37.0-47.0); HEMOGLOBIN 15.1 gm/dL (12.0-15.0); MCH 30.4 pg (26.0-34.0); MCHC 33.8 g/dL (28.0-37.0); MCV 90.1 fL (80.0-100.0); RBC 4.95 mil/uL (4.20-5.00); RDW 12.7 % (10.5-14.5); WBC 8.1 thou/uL (4.0-11.0)
[2018-11-29 15:55] LABS: CALCIUM 9.2 mg/dL (8.5-10.1); CREATININE 0.6 mg/dL (0.6-1.0); POTASSIUM 4.2 mmol/L (3.5-5.1)
[2018-11-29 16:02] LABS: ALBUMIN 3.4 g/dL (3.4-5.0); TOTAL BILIRUBIN 0.3 mg/dL (<0.1-1.0); TOTAL PROTEIN 8.2 g/dL (6.4-8.2)
[2018-11-29 16:09] LABS: MAGNESIUM 1.9 mg/dL (1.8-2.4)
[2018-11-29 16:17] LABS: PHOSPHORUS 4.4 mg/dL (2.5-4.9)
[2018-11-29 16:53] LABS: URINE BILIRUBIN NEGATIVE (Negative); URINE BLOOD NEGATIVE (Negative); URINE CLARITY CLEAR; URINE COLOR YELLOW; URINE GLUCOSE-RANDOM* NEGATIVE (Negative); URINE KETONES NEGATIVE (Negative); URINE LEUKOCYTES-REFLEX NEGATIVE (Negative); URINE NITRITE-REFLEX NEGATIVE (Negative); URINE PROTEIN (DIPSTICK) NEGATIVE (Negative); URINE UROBILINOGEN 0.2 E.U./dl (0.2-1.0)
[2018-11-29] MEDS ORDERED: TYLENOL WITH CO1 TA1 PO (17:15)
[2018-11-29] MEDS ORDERED: NORFLEX100 MG PO ×4 (17:15→17:21)
[2018-11-29 17:22] VITALS: BP 113/79
[2018-11-29 18:49] LABS: AMP/METHAMP Negative (Negative); BARBITURATES Negative (Negative); BENZODIAZEPINES POSITIVE (Negative); COCAINE Negative (Negative); METHADONE Negative (Negative); OPIATES Negative (Negative); PCP Negative (Negative)
== END 2018-11-29 17:25 | disposition home or self-care (01) ==
LOC: ER 13:52
PROVIDERS: Emergency Medicine
DX: M79.605 Pain in left leg (principal); M79.652 Pain in left thigh

== ENCOUNTER 2018-12-04 15:58 | Emergency (ER) | payer OTHER ==
[~2018-12-04] VITALS: Ht 165.1 cm; Wt 102.1 kg
[~2018-12-04 15:58] MED LIST changes: +NORFLEX100 MG PO; +TYLENOL WITH CO1 TA1 PO
[2018-12-04 17:00] LABS: ABSOLUTE NEUTROPHILS 3.7 thou/uL (1.4-8.2); BASOPHILS 1.3 % (0.0-2.0); EOSINOPHILS 0.9 % (0.0-3.0); HEMATOCRIT 44.5 % (37.0-47.0); HEMOGLOBIN 15.1 gm/dL (12.0-15.0); MCH 30.6 pg (26.0-34.0); MCHC 33.9 g/dL (28.0-37.0); MCV 90.3 fL (80.0-100.0); MONOCYTES 10.6 % (1.0-8.0); POLYS 58.2 % (36.0-66.0); RBC 4.93 mil/uL (4.20-5.00); WBC 6.3 thou/uL (4.0-11.0)
[2018-12-04 17:03] LABS: ANION GAP 7 mmol/L (7-16); BUN 13 mg/dL (7-18); CALCIUM 9.5 mg/dL (8.5-10.1); CHLORIDE 101 mmol/L (98-107); CO2 31 mmol/L (21-32); CREATININE 0.8 mg/dL (0.6-1.0); GLUCOSE 87 mg/dL (74-106); POTASSIUM 4.4 mmol/L (3.5-5.1); SODIUM 139 mmol/L (136-145)
[2018-12-04 17:11] LABS: ALBUMIN 3.9 g/dL (3.4-5.0); DIRECT BILIRUBIN 0.1 mg/dL (<0.1-0.3); SGOT 32 U/L (15-37); SGPT 110 U/L (30-65); TOTAL BILIRUBIN 0.4 mg/dL (<0.1-1.0); TOTAL PROTEIN 8.8 g/dL (6.4-8.2)
[2018-12-04 17:25] LABS: TROPONIN-I <0.06 ng/mL (<0.06)
[2018-12-04 17:37] LABS: PLATELET COUNT 211 thou/uL (150-400)
[2018-12-04 17:46] LABS: URINE BILIRUBIN NEGATIVE (Negative); URINE BLOOD NEGATIVE (Negative); URINE CLARITY CLEAR; URINE COLOR YELLOW; URINE GLUCOSE-RANDOM* NEGATIVE (Negative); URINE KETONES NEGATIVE (Negative); URINE LEUKOCYTES-REFLEX NEGATIVE (Negative); URINE NITRITE-REFLEX NEGATIVE (Negative); URINE PROTEIN (DIPSTICK) NEGATIVE (Negative); URINE UROBILINOGEN 0.2 E.U./dl (0.2-1.0)
[2018-12-04 20:18] VITALS: BP 124/86
--- NOTE | 2018-12-05 07:57 | EKG ---
[place] [address] [facility] [place] [address] ELECTROCARDIOGRAM REPORT Name: CAROLANN MCLAUGHLIN [id number] Admission: 12/04/18 Attend Phys: Discharge: 12/04/18 Date of : 77 Report #: [id number] THIS REPORT FOR: //name// [facility] ED Test Date: 2018-12-04 Test Time: 16:13:37 Pat Name: CAROLANN MCLAUGHLIN Department: Room: Gender: F Arabic Linguist: QUIANA : 1975 Requested By: Emelyn Bran Order Number: [id number] MD: Silvio Mcnair Measurements Intervals [place] Rate: 100 P: 55 OR: 155 QRS: 103 QRSD: 107 T: 3 QT: 349 QTc: 451 Interpretive Statements Sinus tachycardia Cannot rule out inferior infarct, old Compared to ECG 10/30/2018 05:53:33 No significant change was found Electronically Signed On 12-05-2018 7:57:16 CDT by Silvio Mcnair [email or web address] <ELECTRONICALLY SIGNED> By: Silvio Mcnair MD, [facility] 12/05/18 0757 1613 1613 Silvio Mcnair MD, FACC /EPI
== END 2018-12-04 20:20 | disposition home or self-care (01) ==
LOC: ER 15:58
PROVIDERS: Emergency Medicine
DX: S40.012A Contusion of left shoulder, initial encounter (principal); R07.89 Other chest pain; R42 Dizziness and giddiness; I95.1 Orthostatic hypotension; I10 Essential (primary) hypertension; E11.9 Type 2 diabetes mellitus without complications; M79.7 Fibromyalgia; G43.909 Migraine, unspecified, not intractable, without status migrainosus; J45.909 Unspecified asthma, uncomplicated; M32.9 Systemic lupus erythematosus, unspecified; F32.9 Major depressive disorder, single episode, unspecified; Z79.899 Other long term (current) drug therapy; Z90.49 Acquired absence of other specified parts of digestive tract; Z90.711 Acquired absence of uterus with remaining cervical stump; Z90.721 Acquired absence of ovaries, unilateral; Z88.0 Allergy status to penicillin; Z88.1 Allergy status to other antibiotic agents; Z88.2 Allergy status to sulfonamides; Z88.6 Allergy status to analgesic agent; Z88.8 Allergy status to other drugs, medicaments and biological substances; Z91.040 Latex allergy status; Z91.018 Allergy to other foods; W18.39XA Other fall on same level, initial encounter; Y93.89 Activity, other specified; Y92.89 Other specified places as the place of occurrence of the external cause; Y99.8 Other external cause status

== ENCOUNTER 2018-12-17 15:08 | Emergency (ER) | payer OTHER ==
[~2018-12-17] VITALS: Ht 165.1 cm; Wt 99.8 kg
[2018-12-17 15:22] VITALS: BP 123/85
[2018-12-17] MEDS ORDERED: MOBIC7.5 MG PO (16:36)
== END 2018-12-17 16:38 | disposition home or self-care (01) ==
LOC: ER 15:08
DX: S46.811A Strain of other muscles, fascia and tendons at shoulder and upper arm level, right arm, initial encounter (principal); I10 Essential (primary) hypertension; E11.9 Type 2 diabetes mellitus without complications; J45.909 Unspecified asthma, uncomplicated; G43.909 Migraine, unspecified, not intractable, without status migrainosus; M79.7 Fibromyalgia; Z90.711 Acquired absence of uterus with remaining cervical stump; Z90.49 Acquired absence of other specified parts of digestive tract; Z90.89 Acquired absence of other organs; Z79.4 Long term (current) use of insulin; Z88.6 Allergy status to analgesic agent; Z88.0 Allergy status to penicillin; Z88.2 Allergy status to sulfonamides; Z88.8 Allergy status to other drugs, medicaments and biological substances; Z91.018 Allergy to other foods; Z91.040 Latex allergy status; Z88.1 Allergy status to other antibiotic agents; W18.39XA Other fall on same level, initial encounter; Y92.89 Other specified places as the place of occurrence of the external cause; Y93.89 Activity, other specified; Y99.8 Other external cause status

== ENCOUNTER 2019-01-08 05:59 | Emergency (ER) | payer OTHER ==
[~2019-01-08] VITALS: Ht 165.1 cm; Wt 104.3 kg
[~2019-01-08 05:59] MED LIST changes: +MOBIC7.5 MG PO
[2019-01-08 06:35] LABS: BASOPHILS 1.4 % (0.0-2.0); HEMATOCRIT 40.1 % (37.0-47.0); HEMOGLOBIN 13.5 gm/dL (12.0-15.0); LYMPHOCYTES 21.1 % (24.0-44.0); MCH 30.9 pg (26.0-34.0); MCHC 33.8 g/dL (28.0-37.0); MCV 91.7 fL (80.0-100.0); MONOCYTES 9.7 % (1.0-8.0); POLYS 66.8 % (36.0-66.0); RBC 4.37 mil/uL (4.20-5.00); RDW 12.8 % (10.5-14.5)
[2019-01-08] MEDS ORDERED: ALPRAZOLAM ER2 MG PO (06:35)
[2019-01-08 07:20] LABS: CALCIUM 9.2 mg/dL (8.5-10.1); CREATININE 0.8 mg/dL (0.6-1.0); POTASSIUM 4.3 mmol/L (3.5-5.1)
[2019-01-08 08:40] LABS: PLATELET COUNT 127 thou/uL (150-400); PLATELET ESTIMATE NORMAL
[2019-01-08 08:44] VITALS: BP 108/41
--- NOTE | 2019-01-09 19:02 | EKG ---
[address] [place] [address] [place] [address] ELECTROCARDIOGRAM REPORT Name: CAROLANN MCLAUGHLIN [facility] [id number] Admission: 01/08/19 Attend Phys: Discharge: 01/08/19 Date of : 77 Report #: [id number] THIS REPORT FOR: //name// [facility] ED Test Date: 2019-01-08 Test Time: 06:22:41 Pat Name: CAROLANN MCLAUGHLIN Department: Room: Gender: F Boom Supervisor: YEE : 1975 Requested By: Harmeet Felix Order Number: [id number] MD: Silvio Mcnair Measurements Intervals [place] Rate: 76 P: 59 [place]: 162 QRS: 87 QRSD: 106 T: 29 QT: 400 QTc: 450 Interpretive Statements Sinus rhythm Cannot rule out inferior infarct, old Compared to ECG 12/04/2018 16:13:37 Sinus tachycardia no longer present Electronically Signed On 01-09-2019 19:01:57 REGULATORY ASSOCIATE by Silvio Mcnair [email or web address] <ELECTRONICALLY SIGNED> By: Slivio Mcnair MD, [facility] 01/09/19 1901 0622 0622 Silvio Mcnair MD, FACC /EPI
== END 2019-01-08 08:44 | disposition home or self-care (01) ==
LOC: ER 05:59
PROVIDERS: Emergency Medicine
DX: K22.0 Achalasia of cardia (principal); E11.65 Type 2 diabetes mellitus with hyperglycemia; R42 Dizziness and giddiness; I10 Essential (primary) hypertension; M79.7 Fibromyalgia; G43.909 Migraine, unspecified, not intractable, without status migrainosus; J45.909 Unspecified asthma, uncomplicated; F32.9 Major depressive disorder, single episode, unspecified; Z90.49 Acquired absence of other specified parts of digestive tract; Z90.711 Acquired absence of uterus with remaining cervical stump; Z90.89 Acquired absence of other organs; Z88.6 Allergy status to analgesic agent; Z88.2 Allergy status to sulfonamides; Z88.0 Allergy status to penicillin; Z88.5 Allergy status to narcotic agent; Z91.040 Latex allergy status; Z88.8 Allergy status to other drugs, medicaments and biological substances

== ENCOUNTER 2019-02-05 16:36 | Emergency (ER) | payer OTHER ==
[~2019-02-05] VITALS: Ht 165.1 cm; Wt 106.6 kg
[~2019-02-05 16:36] MED LIST changes: +ALPRAZOLAM ER2 MG PO
[2019-02-05] MEDS ORDERED: JANUVIA25 MG PO (17:05)
[2019-02-05] MEDS ORDERED: NORVASC5 MG PO (17:06)
[2019-02-05 18:34] VITALS: BP 127/53
== END 2019-02-05 18:34 | disposition home or self-care (01) ==
LOC: ER 16:36
DX: R60.0 Localized edema (principal); I10 Essential (primary) hypertension; E11.9 Type 2 diabetes mellitus without complications; G43.909 Migraine, unspecified, not intractable, without status migrainosus; F32.9 Major depressive disorder, single episode, unspecified; J45.909 Unspecified asthma, uncomplicated; M79.7 Fibromyalgia; Z90.89 Acquired absence of other organs; Z90.49 Acquired absence of other specified parts of digestive tract; Z90.711 Acquired absence of uterus with remaining cervical stump; Z88.6 Allergy status to analgesic agent; Z88.0 Allergy status to penicillin; Z88.5 Allergy status to narcotic agent; Z88.1 Allergy status to other antibiotic agents; Z88.8 Allergy status to other drugs, medicaments and biological substances

== ENCOUNTER 2019-02-09 21:01 | Emergency (ER) | payer OTHER ==
[~2019-02-09] VITALS: Ht 165.1 cm; Wt 108.9 kg
[~2019-02-09 21:01] MED LIST changes: +JANUVIA25 MG PO; +NORVASC5 MG PO
[2019-02-09 22:22] LABS: ABSOLUTE NEUTROPHILS 5.6 thou/uL (1.4-8.2); BASOPHILS 1.1 % (0.0-2.0); EOSINOPHILS 1.3 % (0.0-3.0); HEMATOCRIT 42.6 % (37.0-47.0); HEMOGLOBIN 14.2 gm/dL (12.0-15.0); LYMPHOCYTES 18.8 % (24.0-44.0); MCH 30.3 pg (26.0-34.0); MCHC 33.5 g/dL (28.0-37.0); MCV 90.6 fL (80.0-100.0); MONOCYTES 10.4 % (1.0-8.0); PLATELET COUNT 147 thou/uL (150-400); POLYS 68.4 % (36.0-66.0); RDW 12.6 % (10.5-14.5); WBC 8.2 thou/uL (4.0-11.0)
[2019-02-09 22:34] LABS: ANION GAP 6 mmol/L (7-16); BUN 10 mg/dL (7-18); CALCIUM 8.9 mg/dL (8.5-10.1); CHLORIDE 106 mmol/L (98-107); CO2 28 mmol/L (21-32); CREATININE 0.7 mg/dL (0.6-1.0); GLUCOSE 116 mg/dL (74-106); POTASSIUM 3.9 mmol/L (3.5-5.1); SODIUM 140 mmol/L (136-145)
[2019-02-09 22:39] LABS: TROPONIN-I <0.06 ng/mL (<0.06)
[2019-02-09] MEDS ORDERED: ONDANSETRON HCL4 M2 PO ×2 (22:51→22:54)
[2019-02-09 22:57] VITALS: BP 146/96
--- NOTE | 2019-02-10 12:24 | EKG ---
[place] [address] [facility] [place] [address] ELECTROCARDIOGRAM REPORT Name: CAROLANN MCLAUGHLIN [id number] Admission: 02/09/19 Attend Phys: Discharge: 02/09/19 Date of : 77 Report #: [id number] THIS REPORT FOR: //name// [facility] ED Test Date: 2019-02-09 Test Time: 21:12:20 Pat Name: CAROLANN MCLAUGHLIN Department: Room: Gender: F Cone Treater: BAYLEE : 1975 Requested By: Gareth Cosme Order Number: [id number] MD: Andrea Nunn Measurements Intervals [place] Rate: 83 P: 72 IL: 158 QRS: 107 QRSD: 108 T: 49 QT: 399 QTc: 469 Interpretive Statements Sinus rhythm Left posterior fascicular block Compared to ECG 01/08/2019 06:22:41 Left posterior fascicular block now present Myocardial infarct finding no longer present Electronically Signed On 02-10-2019 12:24:12 KNOWLEDGE ENGINEER by Andrea Nunn [email or web address] <ELECTRONICALLY SIGNED> By: Andrea Nunn MD 02/10/19 1224 11 11 Andrea Nunn MD /THALIA
== END 2019-02-09 23:09 | disposition home or self-care (01) ==
LOC: ER 21:01
PROVIDERS: Nurse Practitioner
DX: K22.0 Achalasia of cardia (principal); R10.13 Epigastric pain; R11.2 Nausea with vomiting, unspecified; I10 Essential (primary) hypertension; M79.7 Fibromyalgia; G43.909 Migraine, unspecified, not intractable, without status migrainosus; J45.909 Unspecified asthma, uncomplicated; M32.9 Systemic lupus erythematosus, unspecified; G40.909 Epilepsy, unspecified, not intractable, without status epilepticus; E11.9 Type 2 diabetes mellitus without complications; Z88.8 Allergy status to other drugs, medicaments and biological substances; Z88.6 Allergy status to analgesic agent; Z90.49 Acquired absence of other specified parts of digestive tract; Z91.040 Latex allergy status; Z91.018 Allergy to other foods; Z88.1 Allergy status to other antibiotic agents; Z79.899 Other long term (current) drug therapy; Z79.4 Long term (current) use of insulin

== ENCOUNTER 2019-03-27 21:04 | Emergency (ER) | payer OTHER ==
[~2019-03-27] VITALS: Ht 165.1 cm; Wt 106.6 kg
[2019-03-27 23:04] LABS: ABSOLUTE NEUTROPHILS 5.5 thou/uL (1.4-8.2); BASOPHILS 1.1 % (0.0-2.0); EOSINOPHILS 1.1 % (0.0-3.0); HEMATOCRIT 45.4 % (37.0-47.0); HEMOGLOBIN 14.8 gm/dL (12.0-15.0); LYMPHOCYTES 19.3 % (24.0-44.0); MCH 29.8 pg (26.0-34.0); MCHC 32.6 g/dL (28.0-37.0); MCV 91.3 fL (80.0-100.0); MONOCYTES 8.7 % (1.0-8.0); PLATELET COUNT 164 thou/uL (150-400); POLYS 69.8 % (36.0-66.0); RBC 4.98 mil/uL (4.20-5.00); RDW 12.4 % (10.5-14.5); WBC 7.9 thou/uL (4.0-11.0)
[2019-03-27 23:11] LABS: CALCIUM 9.1 mg/dL (8.5-10.1); CREATININE 0.8 mg/dL (0.6-1.0); POTASSIUM 4.6 mmol/L (3.5-5.1)
[2019-03-28 02:16] VITALS: BP 141/64
== END 2019-03-28 02:21 | disposition home or self-care (01) ==
LOC: ER 21:04
PROVIDERS: Student in an Organized Health Care Education/Training Program
DX: K60.2 Anal fissure, unspecified (principal); I10 Essential (primary) hypertension; E11.9 Type 2 diabetes mellitus without complications; E66.9 Obesity, unspecified; J45.909 Unspecified asthma, uncomplicated; G43.909 Migraine, unspecified, not intractable, without status migrainosus; M79.7 Fibromyalgia; F32.9 Major depressive disorder, single episode, unspecified; F41.9 Anxiety disorder, unspecified; Z68.39 Body mass index [BMI] 39.0-39.9, adult; Z90.49 Acquired absence of other specified parts of digestive tract; Z90.711 Acquired absence of uterus with remaining cervical stump; Z87.891 Personal history of nicotine dependence; Z91.040 Latex allergy status; Z91.018 Allergy to other foods; Z88.0 Allergy status to penicillin; Z88.2 Allergy status to sulfonamides; Z88.6 Allergy status to analgesic agent; Z88.8 Allergy status to other drugs, medicaments and biological substances

== ENCOUNTER 2019-05-20 04:36 | Emergency (ER) | payer OTHER ==
[~2019-05-20] VITALS: Ht 165.1 cm; Wt 106.7 kg
[2019-05-20] MEDS ORDERED: CLONIDINE HCL0.2 M2 TOP (04:49)
[2019-05-20] MEDS ORDERED: REGLAN10 MG (04:58)
[2019-05-20] MEDS ORDERED: TRUJEO (04:59)
[2019-05-20] MEDS ORDERED: TOPROL XL25 MG PO (05:18)
[2019-05-20] MEDS ORDERED: TOUJEO MAX300 UNIT/1 SUBQ (05:20)
[2019-05-20 05:37] LABS: URINE BILIRUBIN NEGATIVE (Negative); URINE BLOOD NEGATIVE (Negative); URINE CLARITY CLEAR; URINE COLOR YELLOW; URINE GLUCOSE-RANDOM* TRACE (Negative); URINE KETONES NEGATIVE (Negative); URINE LEUKOCYTES-REFLEX TRACE (Negative); URINE NITRITE-REFLEX NEGATIVE (Negative); URINE PROTEIN (DIPSTICK) NEGATIVE (Negative); URINE UROBILINOGEN 0.2 E.U./dl (0.2-1.0)
[2019-05-20 05:45] VITALS: BP 120/82
== END 2019-05-20 05:40 | disposition home or self-care (01) ==
LOC: ER 04:36
PROVIDERS: Emergency Medicine
DX: E11.65 Type 2 diabetes mellitus with hyperglycemia (principal); M32.9 Systemic lupus erythematosus, unspecified; M79.7 Fibromyalgia; J45.909 Unspecified asthma, uncomplicated; G43.909 Migraine, unspecified, not intractable, without status migrainosus; G40.909 Epilepsy, unspecified, not intractable, without status epilepticus; Z88.1 Allergy status to other antibiotic agents; Z91.040 Latex allergy status; Z88.0 Allergy status to penicillin; Z91.018 Allergy to other foods; Z79.4 Long term (current) use of insulin; Z79.899 Other long term (current) drug therapy; Z90.89 Acquired absence of other organs

== ENCOUNTER 2019-05-23 01:50 | Inpatient (IN) | payer OTHER ==
[~2019-05-23] VITALS: Ht 165.1 cm; Wt 70.3 kg
[~2019-05-23 01:50] MED LIST changes: +CLONIDINE HCL0.2 M2 TOP; +REGLAN10 MG; +TOPROL XL25 MG PO; +TOUJEO MAX300 UNIT/1 SUBQ; +TRUJEO
[2019-05-23 01:51] VITALS: BP 159/107
[2019-05-23 03:13] LABS: ABSOLUTE NEUTROPHILS 4.7 thou/uL (1.4-8.2); BASOPHILS 1.3 % (0.0-2.0); EOSINOPHILS 1.5 % (0.0-3.0); HEMATOCRIT 43.3 % (37.0-47.0); HEMOGLOBIN 14.8 gm/dL (12.0-15.0); LYMPHOCYTES 19.6 % (24.0-44.0); MCH 30.7 pg (26.0-34.0); MCHC 34.2 g/dL (28.0-37.0); MCV 89.7 fL (80.0-100.0); MONOCYTES 9.2 % (1.0-8.0); PLATELET COUNT 169 thou/uL (150-400); POLYS 68.4 % (36.0-66.0); RBC 4.83 mil/uL (4.20-5.00); WBC 6.9 thou/uL (4.0-11.0)
[2019-05-23 03:18] LABS: CREATININE 0.7 mg/dL (0.6-1.0); POTASSIUM 3.2 mmol/L (3.5-5.1)
[2019-05-23 03:23] LABS: ALBUMIN 3.8 g/dL (3.4-5.0); TOTAL BILIRUBIN 0.6 mg/dL (<0.1-1.0); TOTAL PROTEIN 7.6 g/dL (6.4-8.2)
[2019-05-23 03:24] LABS: MAGNESIUM 1.6 mg/dL (1.8-2.4); TROPONIN-I <0.06 ng/mL (<0.06)
[2019-05-23 03:43] LABS: HCO3 24.1 mmol/L (22.0-26.0); PCO2 30.5 mmHg (35.0-45.0); PO2 91.6 mmHg (80.0-100.0); pH 7.515 (7.360-7.450); sO2 97.7 % (92.0-98.0)
[2019-05-23 04:42] LABS: URINE BILIRUBIN NEGATIVE (Negative); URINE BLOOD NEGATIVE (Negative); URINE CLARITY CLEAR; URINE COLOR YELLOW; URINE GLUCOSE-RANDOM* TRACE (Negative); URINE KETONES NEGATIVE (Negative); URINE LEUKOCYTES-REFLEX NEGATIVE (Negative); URINE NITRITE-REFLEX NEGATIVE (Negative); URINE PROTEIN (DIPSTICK) NEGATIVE (Negative); URINE UROBILINOGEN 0.2 E.U./dl (0.2-1.0)
[2019-05-23 04:52] LABS: AMP/METHAMP Negative (Negative); BARBITURATES Negative (Negative); BENZODIAZEPINES POSITIVE (Negative); COCAINE Negative (Negative); METHADONE Negative (Negative); OPIATES POSITIVE (Negative); PCP Negative (Negative)
--- NOTE | 2019-05-23 05:43 | NUR ---
CT ASKED PROVIDER IF CTA CAN WAIT FOR A HALF HOUR TO TRY TO CALL IN THE DAY TIME STUDIO DESIGNER EARLY IN ORDER TO MAINTAIN PROPER ISOLATION PROTOCOLS IN CAT SCAN
[2019-05-23 05:58] VITALS: BP 145/96
[2019-05-23 09:00] VITALS: BP 135/87
--- NOTE | 2019-05-23 09:49 | EKG ---
[facility] [place] [address] ELECTROCARDIOGRAM REPORT Name: CAROLANN MCLAUGHLIN Room #: 351-P ADM IN M.R.#: [id number] Admission: 05/23/19 Attend Phys: Yehuda Graham MD Discharge: Date of : 77 Report #: [id number] THIS REPORT FOR: cc: Yehuda Graham MD, Stany A. MD Lundgren,Silvio Olivarez MD LOCATED [facility]IN [facility] ~ THIS REPORT FOR: //name// [facility] ED Test Date: 2019-05-23 Test Time: 01:58:01 Pat Name: CAROLANN MCLAUGHLIN Department: Room: Gender: Female Installer: : 1975 Requested By: Order Number: [id number] : Silvio Mcnair Measurements Intervals [place] Rate: 112 P: 45 UT: 156 QRS: 118 QRSD: 109 T: 5 QT: 358 QTc: 489 Interpretive Statements Sinus tachycardia Left posterior fascicular block Abnormal R-wave progression, late transition Cannot rule out inferior infarct, old Compared to ECG 02/09/2019 21:12:20 Inferior Q waves are more prominent Heart rate has increased Electronically Signed On 05-23-2019 9:48:29 CDT by Silvio Mcnair [email or web address] <ELECTRONICALLY SIGNED> By: Silvio Mcnair MD, FAC 05/23/19 0948 0158 0158 Silvio Mcnair MD, FAC /EPI
[2019-05-23 13:00] VITALS: BP 137/90
--- NOTE | 2019-05-23 14:32 | NUR ---
ASSESSMENT: CM REVIEWED CHART AND SPOKE WITH PATIENT. PT WAS ADMITTED WITH CP/SHORTNESS OF BREATH/ AND REPORTS HAVING A FEVER AT HOME. PT REPORTS THAT SHE LIVES IN AN APT WITH HER SPOUSE AND DAUGHTER. SHE REPORTS HAVING ABOUT 14 STEPS WITH HANDRAILS TO ENTER. PT REPORTS SHE IS FULLY INDEPENDENT WITH ADLS AND AMBULATION. PT STATES THEY HAVE A GRAB BAR IN THE SHOWER. PT REPORTS SHE HAD HH IN THE PAST WHEN SHE HAD SERATONIN SYNDROME BUT UNSURE WHAT AGENCY IT WAS. PT IS BEING TESTED FOR CORONAVIRUS AND RESULTS ARE STILL PENDING. PT REPORTS HER MOTHER AND FATHER HAD RECENTLY TRAVELED TO [place] AND [place] BUT SHE REPORTS HER MOTHER WAS TESTED AND IT WAS NEGATIVE. PT DOES NOT ANTICIPATE HAVING ANY NEEDS AT D/C. CM WILL CONTINUE TO FOLLOW TO ASSIST NEEDED.
[2019-05-23 18:06] VITALS: BP 138/88
--- NOTE | 2019-05-23 18:35 | NUR ---
ASSUMED PATIENT CARE AT 1400. A/O X4. NO SOB.NO TEMP. WILL KEEP MONITOR.
[2019-05-23 21:03] VITALS: BP 115/73
[2019-05-23 23:07] LABS: GLYCOHEMOGLOBIN (HGB A1C) 8.4 % (4.8-5.6)
[2019-05-24 04:30] VITALS: BP 150/97
[2019-05-24 04:48] LABS: HEMATOCRIT 40.3 % (37.0-47.0); HEMOGLOBIN 13.7 gm/dL (12.0-15.0); MCH 30.8 pg (26.0-34.0); MCHC 33.9 g/dL (28.0-37.0); MCV 90.7 fL (80.0-100.0); PLATELET COUNT 146 thou/uL (150-400); RBC 4.45 mil/uL (4.20-5.00); RDW 13.1 % (10.5-14.5); WBC 5.1 thou/uL (4.0-11.0)
[2019-05-24 05:00] LABS: ANION GAP 7 mmol/L (7-16); BUN 13 mg/dL (7-18); CALCIUM 8.8 mg/dL (8.5-10.1); CHLORIDE 103 mmol/L (98-107); CO2 28 mmol/L (21-32); CREATININE 0.7 mg/dL (0.6-1.0); GLUCOSE 140 mg/dL (74-106); MAGNESIUM 1.9 mg/dL (1.8-2.4); POTASSIUM 3.8 mmol/L (3.5-5.1); SODIUM 138 mmol/L (136-145); TROPONIN-I <0.06 ng/mL (<0.06)
[2019-05-24 06:37] LABS: ABSOLUTE NEUTROPHILS 2.7 thou/uL (1.4-8.2); PLATELET ESTIMATE DECREASED
--- NOTE | 2019-05-24 08:18 | H ---
[facility] [place] [address] HISTORY AND PHYSICAL Name: CAROLANN MCLAUGHLIN Room #: 351-P ADM IN M.R.#: [id number] Admission: 05/23/19 Attend Phys: Yehuda Graham MD Discharge: Date of : 77 Report #: [id number] THIS REPORT FOR: cc: Yehuda Graham MD,Case Green MD, MD ~ CC: Yehuda Graham DATE OF SERVICE: 05/23/2019 ATTENDING PHYSICIAN: Dr. Graham. CHIEF COMPLAINT: Fever and cough. HISTORY OF PRESENT ILLNESS: The patient is a 44-year-old female who was admitted through the ER with a 1-week history of illness including cough and fever. She reported intermittent fever up to 101 for several days last week. However, last night, she reported a temperature of 102 at home and had a lot of tight breathing with a dry nonproductive cough and she felt a pressure on her chest. She has had asthma exacerbations in the past, but felt this was a somewhat different. She has had family members who have traveled to [place] and [place] recently, but apparently according to the notes, her mother was tested for coronavirus, which was negative per her report. She has had some sore throat and some nasal drainage, but no major sputum production. She has had no other symptoms. She does have a history of lupus, but has not been on immunosuppressive agents for she thinks more than 6 months. PAST MEDICAL HISTORY: Hypertension, fibromyalgia, PTSD, migraines with seizures, asthma, lupus, diabetes type 2, remote history of C. diff and prior history of gastroparesis and achalasia. PAST SURGICAL HISTORY: Cholecystectomy, appendectomy, oophorectomy. FAMILY HISTORY: Unknown. SOCIAL HISTORY: She is living at home with family. No chronic alcohol or tobacco use. ALLERGIES: Multiple, please see the list. MEDICATIONS: Toujeo insulin injection, Toprol-XL, Reglan, clonidine, Norvasc, Januvia, Xanax ER, Zofran, Humalog with meals, lisinopril, albuterol. REVIEW OF SYSTEMS: She denies headache, chest pain, shortness of breath, abdominal pain, nausea, vomiting, diarrhea, constipation, dysuria, syncope. [facility] [address] [place] [address] HISTORY AND PHYSICAL Name: CAROLANN MCLAUGHLIN Room #: 351-[facility] IN ..#: [id number] Admission: 05/23/19 Attend Phys: Yehuda Graham MD Discharge: Date of : 77 Report #: [id number] OBJECTIVE: VITAL SIGNS: Temperature 37.2, pulse 119, respirations 30, blood pressure 159/107, O2 sat 98% on room air. GENERAL: She is awake and alert, in no distress. HEAD AND NECK: Unremarkable. LUNGS: Clear. She does have a dry cough. No wheezing. HEART: Tachycardic, regular. No murmur. ABDOMEN: Soft, normoactive bowel sounds. EXTREMITIES: No edema. NEUROLOGIC: Motor strength 5/5 throughout and intact. LABORATORY REVIEW: Glucose was 231. Urine drug screen was positive for opiates and benzodiazepines. ABG was unremarkable. CBC was normal. Chemistry had potassium 3.2. Transaminases were slightly elevated. Urinalysis was essentially negative. Chest x-ray was negative. CTA of the chest showed no pulmonary embolus. There may be a noncalcified benign granuloma in the right chest. Recommend 6-month followup and there is a suggestion of peripheral ground glass opacities in the right lower lobe and lingula of the left upper lobe. ASSESSMENT: 1. Community-acquired pneumonia. 2. Diabetes type 2. 3. Hypertension. 4. Lupus, not currently on immunosuppression. PLAN: Empiric antibiotics will be ordered and COVID-19 screening has been ordered through the Emergency Room. Other supportive care to continue in place, pending those results. <ELECTRONICALLY SIGNED> By: Case Acuna MD 05/24/19 0818 1155 1214 Case Acuna MD /nt
[2019-05-24 08:19] VITALS: BP 149/101
[2019-05-24 11:50] VITALS: BP 145/87
--- NOTE | 2019-05-24 13:23 | NUR ---
ON-GOING ASSESSMENT: CM REVIEWED CHART. PT IS SLOWLY PROGRESSING, PTS COVID 19 TEST IS STILL PENDING. CM WILL CONTINUE TO FOLLOW.
[2019-05-24 15:34] VITALS: BP 126/72
--- NOTE | 2019-05-24 16:45 | NUR ---
ASSUMED CARE APPROX 0700. PT C/O HEADACHE AND RATING PAIN OF 7/10. GIVEN TYLENOL. WASN'T SUBSIDING PAIN. DR. RIVERA INFORMED AND A NEW ORDER WAS PLACED FOR CODEINE/ACETAMINOPHEN. PT THEN REPORTED PAIN RATING OF 2/10. NO FEVERS NOTED. PT STATED THAT SHE HAD DIFFICULTY WITH URINATION YESTERDAY, BUT REPORTS ADEQUATE OUTPUT THIS SHIFT. SHE HAS INCREASED HER WATER INTAKE. DR. RIVEAR NOTIFIED OF PT'S CONCERN OF PTSD MEDS AND CLONIDINE PATCH WEREN'T ORDERED. DR. RIVERA TO REVIEW HOME MED LIST AND MAKE CHANGES; WHICH HAS BEEN COMPLETED. PT C/O OF NO SHORTNESS OF BREATH, PROD. COUGH, OR DIFFICULTY BREATHING. STILL WAITING ON COVID-19 RESULTS. PT SLOWLY PROGRESSING TOWARDS PLAN OF CARE GOALS. WILL CONTINUE TO MONITOR.
[2019-05-24 19:05] VITALS: BP 130/79
[2019-05-25 03:16] VITALS: BP 144/98
--- NOTE | 2019-05-25 03:31 | NUR ---
PT COVID-19 TEST REPORTEDLY NEGATIVE PER LAURI IN LAB. PT TRANSFERRED VIA W/C TO [place] [id number] AND WAS INFORMED OF THE NEGATIVE TEST RESULT. NO COMPLAINTS OVERNIGHT EXCEPT FOR HEADACHE VOICING MILD RELIEF WITH TYLENOL/CODEINE.
--- NOTE | 2019-05-25 03:34 | NUR ---
PT TRANSFERRED FROM 3 AROUND 0310. VSS. NO CHEST PAIN REPORTED. PT STATE SHE A PERSISTENT HEADACHE AND HAD TAKE TYLENOL BEFORE TRANSFER TO . NO NAUSEA, OR VOMITING REPORTED. TELE CONNECTED. PT ORIENTED TO ROOM. NO FURTHER DISCOMFORT NOTED. WILL CONTIUNUE TO MONITOR.
[2019-05-25 07:20] VITALS: BP 155/97
[2019-05-25] MEDS ORDERED: CEFUROXIME500 MG PO (09:34)
[2019-05-25] MEDS ORDERED: METOPROLOL SUCC50 MG PO (09:34)
[2019-05-25 09:40] VITALS: BP 155/97
--- NOTE | 2019-05-25 09:46 | NUR ---
ASSUMED CARE 0700, ALERT X4, HEADACH PAIN MANAGED WITH MEDICAITONS, VSS, NSR ON TELE. UP AB [place], NO BM NOTED AT THIS TIME. DR OWEN'S ROUNDED ON PATIENT WITH DC ORDERS IN PLACE TO GO HOME WITH SELF CARE. DR OWEN'S WROTE SCIPT FOR NEGATIVE COVID-19 FOR WORK PURPOSE. IV AND TELE REMOVED. REVIEWED DC PAPERWORK AND NEW MEDICATIONS.
--- NOTE | 2019-05-29 08:36 | D ---
[facility] [place] [place] [address] DISCHARGE SUMMARY Name: CAROLANN MCLAUGHLIN Room #: 211-P [facility] IN M.R.#: [id number] Admission: 05/23/19 Attend Phys: Yehuda Graham MD Discharge: 05/25/19 Date of : 77 Report #: [id number] THIS REPORT FOR: cc: Yehuda Graham MD, Stany A. MD Peters, David W. MD ~ THIS REPORT FOR: //name// CC: Yehuda Graham FINAL DIAGNOSES: 1. Pneumonia. 2. Hypertension. 3. Diabetes type 2. 4. History of lupus. HOSPITAL COURSE: The patient was admitted through the Emergency Room with fever, cough and concern for infection. Influenza testing was negative. Coronavirus testing was negative. Chest x-ray was unremarkable, but a CTA of the chest, which was done for pulmonary embolus, rule out a negative suggested some basilar bilateral patchy infiltrate, which could be the signs of pneumonia or viral infection. There was also a very small pulmonary nodule. They recommended followup in 1 year. She was treated symptomatically with nebulized treatments and antibiotics. Other home medications were continued. She had no other interval complication. She had no fever, elevated white count or oxygen requirement during her stay. PHYSICAL EXAMINATION: VITAL SIGNS: On the day of discharge, vital signs were stable. LUNGS: Clear. HEART: Regular. ABDOMEN: Soft, normoactive bowel sounds. EXTREMITIES: No edema. DISPOSITION: To be discharged to home with diabetic diet, activity as tolerated. Follow up with Dr. Graham in 1 month with a followup chest x-ray and she will need a followup CT of the chest in 1 year. DISCHARGE MEDICATIONS: She will resume all home medications plus Ceftin for 4 more days, metoprolol 100 mg daily for additional blood pressure control. <ELECTRONICALLY SIGNED> By: Case Acuna MD 05/29/19 0836 0939 0948 Case Acuna MD /nt
== END 2019-05-25 10:29 | disposition home or self-care (01) | DRG 195 ==
LOC: ER 01:50 → 3W 05:47 → EROBS 05:47 → 3W 06:10 → 2N 05-25 03:15
PROVIDERS: Emergency Medicine; Nurse Practitioner; ADMIT Internal Medicine
DX: J18.9 Pneumonia, unspecified organism (principal); I10 Essential (primary) hypertension; F43.10 Post-traumatic stress disorder, unspecified; G43.909 Migraine, unspecified, not intractable, without status migrainosus; M79.7 Fibromyalgia; J45.909 Unspecified asthma, uncomplicated; K21.9 Gastro-esophageal reflux disease without esophagitis; M32.9 Systemic lupus erythematosus, unspecified; E11.43 Type 2 diabetes mellitus with diabetic autonomic (poly)neuropathy; K31.84 Gastroparesis; Z90.49 Acquired absence of other specified parts of digestive tract; Z86.718 Personal history of other venous thrombosis and embolism; Z79.01 Long term (current) use of anticoagulants; Z90.721 Acquired absence of ovaries, unilateral; Z90.89 Acquired absence of other organs; Z79.2 Long term (current) use of antibiotics; Z79.4 Long term (current) use of insulin
CPT/HCPCS: 10879

== ENCOUNTER 2019-07-30 23:05 | Emergency (ER) | payer OTHER ==
[~2019-07-30] VITALS: Ht 165.1 cm; Wt 97.5 kg
[~2019-07-30 23:05] MED LIST changes: +CEFUROXIME500 MG PO; +CLONIDINE HCL0.2 M2 PO; -CLONIDINE HCL0.2 M2 TOP; +METOPROLOL SUCC50 MG PO
[2019-07-31 00:42] LABS: CALCIUM 8.3 mg/dL (8.5-10.1); CREATININE 0.8 mg/dL (0.6-1.0); POTASSIUM 4.4 mmol/L (3.5-5.1)
[2019-07-31 00:48] LABS: ALBUMIN 3.4 g/dL (3.4-5.0); TOTAL BILIRUBIN 0.3 mg/dL (0.2-1.0)
[2019-07-31] MEDS ORDERED: MIRALAX119 GM PO (02:06)
[2019-07-31 02:32] LABS: ABSOLUTE NEUTROPHILS 4.2 thou/uL (1.4-8.2); BASOPHILS 1.2 % (0.0-2.0); EOSINOPHILS 1.3 % (0.0-3.0); HEMATOCRIT 43.9 % (37.0-47.0); HEMOGLOBIN 14.9 gm/dL (12.0-15.0); LYMPHOCYTES 24.8 % (24.0-44.0); MCH 30.8 pg (26.0-34.0); MCHC 33.9 g/dL (28.0-37.0); MCV 90.8 fL (80.0-100.0); PLATELET COUNT 121 thou/uL (150-400); POLYS 62.7 % (36.0-66.0); RBC 4.84 mil/uL (4.20-5.00); WBC 6.7 thou/uL (4.0-11.0)
[2019-07-31 03:03] VITALS: BP 130/83
== END 2019-07-31 03:12 | disposition home or self-care (01) ==
LOC: ER 23:05
PROVIDERS: Student in an Organized Health Care Education/Training Program
DX: K59.00 Constipation, unspecified (principal); E66.9 Obesity, unspecified; I10 Essential (primary) hypertension; M79.7 Fibromyalgia; G43.909 Migraine, unspecified, not intractable, without status migrainosus; G40.909 Epilepsy, unspecified, not intractable, without status epilepticus; E11.9 Type 2 diabetes mellitus without complications; Z79.4 Long term (current) use of insulin; Z88.6 Allergy status to analgesic agent; Z88.0 Allergy status to penicillin; Z88.2 Allergy status to sulfonamides; Z88.1 Allergy status to other antibiotic agents; Z88.8 Allergy status to other drugs, medicaments and biological substances; Z79.899 Other long term (current) drug therapy; Z90.89 Acquired absence of other organs

== ENCOUNTER 2019-08-12 12:44 | Emergency (ER) | payer OTHER ==
[~2019-08-12] VITALS: Ht 165.1 cm; Wt 97.5 kg
[~2019-08-12 12:44] MED LIST changes: +MIRALAX119 GM PO
[2019-08-12 14:19] LABS: ABSOLUTE NEUTROPHILS 7.6 thou/uL (1.4-8.2); BASOPHILS 1.1 % (0.0-2.0); EOSINOPHILS 0.5 % (0.0-3.0); HEMATOCRIT 46.9 % (37.0-47.0); HEMOGLOBIN 16.2 gm/dL (12.0-15.0); LYMPHOCYTES 20.5 % (24.0-44.0); MCH 31.2 pg (26.0-34.0); MCHC 34.6 g/dL (28.0-37.0); MCV 90.3 fL (80.0-100.0); MONOCYTES 9.9 % (1.0-8.0); PLATELET COUNT 112 thou/uL (150-400); RBC 5.19 mil/uL (4.20-5.00); RDW 12.4 % (10.5-14.5); WBC 12.5 thou/uL (4.0-11.0)
[2019-08-12 14:29] LABS: ANION GAP 7 mmol/L (7-16); BUN 12 mg/dL (7-18); CALCIUM 9.3 mg/dL (8.5-10.1); CHLORIDE 100 mmol/L (98-107); CO2 28 mmol/L (21-32); CREATININE 0.9 mg/dL (0.6-1.0); GLUCOSE 164 mg/dL (74-106); POTASSIUM 3.7 mmol/L (3.5-5.1); SODIUM 135 mmol/L (136-145)
[2019-08-12 14:38] LABS: ALBUMIN 3.8 g/dL (3.4-5.0); SGOT 41 U/L (15-37); SGPT 73 U/L (30-65); TOTAL BILIRUBIN 0.4 mg/dL (0.2-1.0); TOTAL PROTEIN 8.2 g/dL (6.4-8.2); TROPONIN-I <0.06 ng/mL (<0.06)
[2019-08-12 15:44] LABS: URINE BILIRUBIN NEGATIVE (Negative); URINE BLOOD NEGATIVE (Negative); URINE CLARITY CLEAR; URINE COLOR YELLOW; URINE GLUCOSE-RANDOM* TRACE (Negative); URINE KETONES NEGATIVE (Negative); URINE LEUKOCYTES-REFLEX TRACE (Negative); URINE NITRITE-REFLEX NEGATIVE (Negative); URINE PROTEIN (DIPSTICK) NEGATIVE (Negative); URINE SPECIFIC GRAVITY 1.025 (1.005-1.035); URINE UROBILINOGEN 0.2 E.U./dl (0.2-1.0)
[2019-08-12] MEDS ORDERED: DOXYCYCLINE 10100 MG PO (16:08)
[2019-08-12] MEDS ORDERED: ONDANSETRON HCL4 M2 PO (16:08)
[2019-08-12] MEDS ORDERED: NORCO 5-325 TA1 EAC1 PO (16:08)
[2019-08-12 16:17] VITALS: BP 175/94
--- NOTE | 2019-08-13 07:43 | EKG ---
[facility] [place] [address] ELECTROCARDIOGRAM REPORT Name: CAROLANN MCLAUGHLIN [facility] [id number] Admission: 08/12/19 Attend Phys: Discharge: 08/12/19 Date of : 77 Report #: [id number] THIS REPORT FOR: cc: Yehuda Graham MD, Stany A. 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: : 1975 Requested By: Douglas Solis Order Number: [id number] MD: Silvio Mcnair Measurements Intervals [place] Rate: 103 P: 46 [place]: 162 QRS: 114 QRSD: 108 T: 16 QT: 385 QTc: 504 Interpretive Statements Sinus tachycardia Rightward axis Abnormal R-wave progression, late transition Inferior infarct, old Compared to ECG 05/23/2019 01:58:01 No significant changes Electronically Signed On 08-13-2019 7:42:12 CDT by Silvio Mcnair [email or web address] <ELECTRONICALLY SIGNED> By: Silvio Mcnair MD, [facility] 08/13/19 0742 1349 1349 Silvio Mcnair MD, [facility] /EPI
== END 2019-08-12 16:17 | disposition home or self-care (01) ==
LOC: ER 12:44
PROVIDERS: Physician Assistant
DX: R50.9 Fever, unspecified (principal); R06.02 Shortness of breath; R11.2 Nausea with vomiting, unspecified; I10 Essential (primary) hypertension; J45.909 Unspecified asthma, uncomplicated; E11.9 Type 2 diabetes mellitus without complications; Z20.828 Contact with and (suspected) exposure to other viral communicable diseases; Z90.49 Acquired absence of other specified parts of digestive tract; Z90.710 Acquired absence of both cervix and uterus; Z79.899 Other long term (current) drug therapy; Z79.4 Long term (current) use of insulin; Z88.1 Allergy status to other antibiotic agents; Z88.2 Allergy status to sulfonamides; Z88.8 Allergy status to other drugs, medicaments and biological substances; Z91.040 Latex allergy status

== ENCOUNTER 2019-08-27 21:27 | Emergency (ER) | payer OTHER ==
[~2019-08-27] VITALS: Ht 165.1 cm; Wt 105.2 kg
[~2019-08-27 21:27] MED LIST changes: +DOXYCYCLINE 10100 MG PO
[2019-08-28 00:38] VITALS: BP 145/92
== END 2019-08-28 00:39 | disposition home or self-care (01) ==
LOC: ER 21:27
DX: M25.511 Pain in right shoulder (principal); R07.81 Pleurodynia; M79.601 Pain in right arm; Z79.899 Other long term (current) drug therapy; Z88.2 Allergy status to sulfonamides; Z88.1 Allergy status to other antibiotic agents; Z88.8 Allergy status to other drugs, medicaments and biological substances; Z91.018 Allergy to other foods; Z91.040 Latex allergy status; Z88.0 Allergy status to penicillin; W01.198A Fall on same level from slipping, tripping and stumbling with subsequent striking against other object, initial encounter; Y93.89 Activity, other specified; Y92.89 Other specified places as the place of occurrence of the external cause; Y99.8 Other external cause status

== ENCOUNTER 2019-09-03 14:17 | Emergency (ER) | payer OTHER ==
[~2019-09-03] VITALS: Ht 165.1 cm; Wt 99.8 kg
[2019-09-03 15:19] LABS: ABSOLUTE NEUTROPHILS 5.1 thou/uL (1.4-8.2); BASOPHILS 1.1 % (0.0-2.0); EOSINOPHILS 1.6 % (0.0-3.0); HEMATOCRIT 43.9 % (37.0-47.0); HEMOGLOBIN 15.2 gm/dL (12.0-15.0); LYMPHOCYTES 18.1 % (24.0-44.0); MCH 31.2 pg (26.0-34.0); MCHC 34.6 g/dL (28.0-37.0); MCV 90.2 fL (80.0-100.0); MONOCYTES 8.3 % (1.0-8.0); POLYS 70.9 % (36.0-66.0); RBC 4.87 mil/uL (4.20-5.00); RDW 12.2 % (10.5-14.5); WBC 7.2 thou/uL (4.0-11.0)
[2019-09-03 15:35] LABS: CALCIUM 8.7 mg/dL (8.5-10.1); CREATININE 0.8 mg/dL (0.6-1.0); MAGNESIUM 1.8 mg/dL (1.8-2.4)
[2019-09-03 15:40] LABS: URINE BILIRUBIN NEGATIVE (Negative); URINE BLOOD NEGATIVE (Negative); URINE CLARITY CLEAR; URINE COLOR YELLOW; URINE GLUCOSE-RANDOM* 3+ (Negative); URINE KETONES NEGATIVE (Negative); URINE LEUKOCYTES-REFLEX NEGATIVE (Negative); URINE NITRITE-REFLEX NEGATIVE (Negative); URINE PROTEIN (DIPSTICK) NEGATIVE (Negative); URINE SPECIFIC GRAVITY 1.015 (1.005-1.035); URINE UROBILINOGEN 0.2 E.U./dl (0.2-1.0)
[2019-09-03 15:47] LABS: PLATELET COUNT 136 thou/uL (150-400)
[2019-09-03 15:48] LABS: LARGE PLATELETS RARE
[2019-09-03 16:50] VITALS: BP 137/79
== END 2019-09-03 16:51 | disposition home or self-care (01) ==
LOC: ER 14:17
PROVIDERS: Emergency Medicine
DX: K64.9 Unspecified hemorrhoids (principal); K59.00 Constipation, unspecified; Z90.710 Acquired absence of both cervix and uterus; Z79.899 Other long term (current) drug therapy; Z88.0 Allergy status to penicillin; Z88.1 Allergy status to other antibiotic agents; Z88.2 Allergy status to sulfonamides; Z88.5 Allergy status to narcotic agent; Z88.6 Allergy status to analgesic agent; Z88.8 Allergy status to other drugs, medicaments and biological substances; Z91.018 Allergy to other foods; Z91.040 Latex allergy status

== ENCOUNTER 2019-10-12 20:58 | Emergency (ER) | payer OTHER ==
[~2019-10-12] VITALS: Ht 165.1 cm; Wt 99.3 kg
[2019-10-13 00:21] VITALS: BP 184/110
== END 2019-10-13 00:23 | disposition home or self-care (01) ==
LOC: ER 20:58
DX: R51 Headache (principal); M79.7 Fibromyalgia; M32.9 Systemic lupus erythematosus, unspecified; E11.43 Type 2 diabetes mellitus with diabetic autonomic (poly)neuropathy; K31.84 Gastroparesis; Z79.4 Long term (current) use of insulin; Z88.6 Allergy status to analgesic agent; Z88.0 Allergy status to penicillin; Z88.2 Allergy status to sulfonamides; Z91.040 Latex allergy status; Z88.1 Allergy status to other antibiotic agents; Z88.8 Allergy status to other drugs, medicaments and biological substances; Z79.899 Other long term (current) drug therapy

== ENCOUNTER 2019-11-01 10:08 | Emergency (ER) | payer OTHER ==
[~2019-11-01] VITALS: Ht 165.1 cm; Wt 98.4 kg
[2019-11-01 11:03] LABS: ABSOLUTE NEUTROPHILS 3.2 thou/uL (1.4-8.2); BASOPHILS 1.3 % (0.0-2.0); EOSINOPHILS 1.3 % (0.0-3.0); HEMATOCRIT 42.7 % (37.0-47.0); HEMOGLOBIN 14.7 gm/dL (12.0-15.0); MCH 30.6 pg (26.0-34.0); MCHC 34.4 g/dL (28.0-37.0); MONOCYTES 8.6 % (1.0-8.0); POLYS 59.8 % (36.0-66.0); RDW 12.4 % (10.5-14.5); WBC 5.3 thou/uL (4.0-11.0)
[2019-11-01 11:11] LABS: CREATININE 0.8 mg/dL (0.6-1.0)
[2019-11-01 11:14] LABS: BE(vivo) 0.6 mmol/L (-2 to +3); HCO3 24.8 mmol/L (22.0-26.0); PCO2 VENOUS 38.8 mmHg (41.0-51.0); PO2 VENOUS 146.8 mmHg (35.0-45.0)
[2019-11-01 11:17] LABS: ALBUMIN 3.4 g/dL (3.4-5.0); TOTAL BILIRUBIN 0.3 mg/dL (0.2-1.0); TOTAL PROTEIN 7.8 g/dL (6.4-8.2)
[2019-11-01 12:04] LABS: PLATELET COUNT 124 thou/uL (150-400)
[2019-11-01 12:10] LABS: URINE BILIRUBIN NEGATIVE (Negative); URINE BLOOD NEGATIVE (Negative); URINE CLARITY CLEAR; URINE COLOR YELLOW; URINE GLUCOSE-RANDOM* 3+ (Negative); URINE KETONES NEGATIVE (Negative); URINE LEUKOCYTES-REFLEX NEGATIVE (Negative); URINE NITRITE-REFLEX NEGATIVE (Negative); URINE PROTEIN (DIPSTICK) NEGATIVE (Negative); URINE SPECIFIC GRAVITY <= 1.005 (1.005-1.035); URINE UROBILINOGEN 0.2 E.U./dl (0.2-1.0)
[2019-11-01 16:45] VITALS: BP 119/86
== END 2019-11-01 17:01 | disposition home or self-care (01) ==
LOC: ER 10:08
PROVIDERS: Emergency Medicine
DX: E11.65 Type 2 diabetes mellitus with hyperglycemia (principal); R42 Dizziness and giddiness; M79.7 Fibromyalgia; Z79.899 Other long term (current) drug therapy; Z88.8 Allergy status to other drugs, medicaments and biological substances; Z88.6 Allergy status to analgesic agent; Z88.0 Allergy status to penicillin; Z91.018 Allergy to other foods; Z91.048 Other nonmedicinal substance allergy status; Z91.040 Latex allergy status; Z88.1 Allergy status to other antibiotic agents

== ENCOUNTER 2019-11-06 19:44 | Emergency (ER) | payer OTHER ==
[~2019-11-06] VITALS: Ht 165.1 cm; Wt 98.4 kg
[2019-11-06] MEDS ORDERED: PERCOCET PO (22:10)
[2019-11-06 22:17] VITALS: BP 123/58
== END 2019-11-06 22:21 | disposition home or self-care (01) ==
LOC: ER 19:44
DX: M54.5 Low back pain (principal); M79.7 Fibromyalgia; E11.43 Type 2 diabetes mellitus with diabetic autonomic (poly)neuropathy; K31.84 Gastroparesis; Z91.040 Latex allergy status; Z88.1 Allergy status to other antibiotic agents; Z88.6 Allergy status to analgesic agent; Z88.8 Allergy status to other drugs, medicaments and biological substances; Z79.899 Other long term (current) drug therapy; W18.30XA Fall on same level, unspecified, initial encounter; Y93.89 Activity, other specified; Y92.89 Other specified places as the place of occurrence of the external cause; Y99.9 Unspecified external cause status

== ENCOUNTER 2019-11-20 21:29 | Emergency (ER) | payer OTHER ==
[~2019-11-20] VITALS: Ht 165.1 cm; Wt 99.3 kg
[2019-11-20] MEDS ORDERED: LANTUS SUBQ (21:56)
[2019-11-20] MEDS ORDERED: PERCOCET 5-3251 EACH PO (22:15)
[2019-11-20 22:24] VITALS: BP 158/96
== END 2019-11-20 22:25 | disposition home or self-care (01) ==
LOC: ER 21:29
DX: M54.5 Low back pain (principal); E11.9 Type 2 diabetes mellitus without complications; Z79.899 Other long term (current) drug therapy; Z88.0 Allergy status to penicillin; Z88.1 Allergy status to other antibiotic agents; Z88.2 Allergy status to sulfonamides; Z88.5 Allergy status to narcotic agent; Z88.6 Allergy status to analgesic agent; Z88.8 Allergy status to other drugs, medicaments and biological substances; Z91.018 Allergy to other foods; W01.0XXA Fall on same level from slipping, tripping and stumbling without subsequent striking against object, initial encounter; Y93.89 Activity, other specified; Y92.89 Other specified places as the place of occurrence of the external cause; Y99.8 Other external cause status

== ENCOUNTER 2019-12-30 20:17 | Emergency (ER) | payer OTHER ==
[~2019-12-30] VITALS: Ht 165.1 cm; Wt 99.8 kg
[~2019-12-30 20:17] MED LIST changes: +LANTUS SUBQ
[2019-12-30] MEDS ORDERED: NORCO 5-325 TA1 EAC2 PO (21:53)
[2019-12-30] MEDS ORDERED: MEDROLDOSEPACK PO (21:53)
[2019-12-30 22:13] VITALS: BP 134/74
== END 2019-12-30 22:13 | disposition home or self-care (01) ==
LOC: ER 20:17
DX: M54.42 Lumbago with sciatica, left side (principal); E11.9 Type 2 diabetes mellitus without complications; Z79.899 Other long term (current) drug therapy; Z88.0 Allergy status to penicillin; Z88.1 Allergy status to other antibiotic agents; Z88.2 Allergy status to sulfonamides; Z88.8 Allergy status to other drugs, medicaments and biological substances; Z91.018 Allergy to other foods; Z88.6 Allergy status to analgesic agent; Z91.040 Latex allergy status

== ENCOUNTER 2020-01-04 00:24 | Emergency (ER) | payer OTHER ==
[~2020-01-04] VITALS: Ht 165.1 cm; Wt 97.5 kg
[~2020-01-04 00:24] MED LIST changes: +MEDROLDOSEPACK PO; +NORCO 5-325 TA1 EAC2 PO
[2020-01-04] MEDS ORDERED: INSULIN HUMAN INH (00:42)
[2020-01-04 03:27] LABS: ABSOLUTE NEUTROPHILS 4.6 thou/uL (1.4-8.2); BASOPHILS 0.5 % (0.0-2.0); EOSINOPHILS 1.4 % (0.0-3.0); HEMATOCRIT 42.4 % (37.0-47.0); HEMOGLOBIN 14.3 gm/dL (12.0-15.0); MCH 30.7 pg (26.0-34.0); MCHC 33.8 g/dL (28.0-37.0); MCV 90.8 fL (80.0-100.0); MONOCYTES 8.8 % (1.0-8.0); PLATELET COUNT 138 thou/uL (150-400); POLYS 62.3 % (36.0-66.0); RBC 4.67 mil/uL (4.20-5.00); RDW 12.5 % (10.5-14.5); WBC 7.4 thou/uL (4.0-11.0)
[2020-01-04 03:31] LABS: ANION GAP 10 mmol/L (7-16); BUN 11 mg/dL (7-18); CALCIUM 8.5 mg/dL (8.5-10.1); CHLORIDE 103 mmol/L (98-107); CO2 24 mmol/L (21-32); CREATININE 0.8 mg/dL (0.6-1.0); GLUCOSE 230 mg/dL (74-106); SODIUM 137 mmol/L (136-145)
[2020-01-04 03:39] LABS: MAGNESIUM 1.9 mg/dL (1.8-2.4); TROPONIN-I <0.06 ng/mL (<0.06)
[2020-01-04 04:08] VITALS: BP 141/88
--- NOTE | 2020-01-04 14:38 | EKG ---
[facility] [place] [address] ELECTROCARDIOGRAM REPORT Name: CAROLANN MCLAUGHLIN Room #: DEP [facility]#: [id number] Admission: 01/04/20 Attend Phys: Discharge: 01/04/20 Date of : 77 Report #: [id number] THIS REPORT FOR: cc: Yehuda Graham MD, Stany A. 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: SANJEEV : 1975 Requested By: Harmeet Felix Order Number: [id number] MD: Hema Bui Measurements Intervals [place] Rate: 73 P: 59 [place]: 166 QRS: 83 QRSD: 108 T: 9 QT: 430 QTc: 474 Interpretive Statements Sinus rhythm Probable left atrial enlargement Low voltage, precordial leads Compared to ECG 08/12/2019 13:49:56 Low QRS voltage now present Sinus tachycardia no longer present Right-axis deviation no longer present Electronically Signed On 01-04-2020 14:38:02 SCHOOL ADJUSTMENT COUNSELOR by Hema Bui [email or web address] <ELECTRONICALLY SIGNED> By: Hema Bui MD, FAC 01/04/20 1438 0159 0159 Hema Bui MD, [facility] /EPI
== END 2020-01-04 04:09 | disposition home or self-care (01) ==
LOC: ER 00:24
PROVIDERS: Emergency Medicine
DX: R50.9 Fever, unspecified (principal); R11.0 Nausea; R05 Cough; E11.9 Type 2 diabetes mellitus without complications; Z79.899 Other long term (current) drug therapy; Z88.0 Allergy status to penicillin; Z88.1 Allergy status to other antibiotic agents; Z88.2 Allergy status to sulfonamides; Z88.6 Allergy status to analgesic agent; Z88.8 Allergy status to other drugs, medicaments and biological substances; Z91.018 Allergy to other foods; Z91.040 Latex allergy status; Z20.828 Contact with and (suspected) exposure to other viral communicable diseases

== ENCOUNTER 2020-01-31 22:53 | Emergency (ER) | payer OTHER ==
[~2020-01-31] VITALS: Ht 165.1 cm; Wt 83.9 kg
[~2020-01-31 22:53] MED LIST changes: +INSULIN HUMAN INH
[2020-02-01 01:33] LABS: ABSOLUTE NEUTROPHILS 6.5 thou/uL (1.4-8.2); BASOPHILS 0.9 % (0.0-2.0); EOSINOPHILS 3.3 % (0.0-3.0); HEMATOCRIT 37.2 % (37.0-47.0); HEMOGLOBIN 12.6 gm/dL (12.0-15.0); LYMPHOCYTES 21.2 % (24.0-44.0); MCH 30.6 pg (26.0-34.0); MCHC 33.8 g/dL (28.0-37.0); MCV 90.7 fL (80.0-100.0); MONOCYTES 8.3 % (1.0-8.0); PLATELET COUNT 109 thou/uL (150-400); POLYS 66.3 % (36.0-66.0); RDW 12.3 % (10.5-14.5); WBC 9.8 thou/uL (4.0-11.0)
[2020-02-01 01:42] LABS: CALCIUM 8.8 mg/dL (8.5-10.1); CREATININE 0.8 mg/dL (0.6-1.0)
[2020-02-01] MEDS ORDERED: APAP W/CODEINE1 TA2 PO (03:10)
[2020-02-01 03:21] VITALS: BP 127/88
[2020-02-01 03:35] LABS: MAGNESIUM 1.8 mg/dL (1.8-2.4)
== END 2020-02-01 03:24 | disposition home or self-care (01) ==
LOC: ER 22:53
PROVIDERS: Emergency Medicine
DX: G89.18 Other acute postprocedural pain (principal); N64.4 Mastodynia; E11.9 Type 2 diabetes mellitus without complications; Z79.4 Long term (current) use of insulin; Z79.899 Other long term (current) drug therapy; Z88.0 Allergy status to penicillin; Z88.1 Allergy status to other antibiotic agents; Z88.2 Allergy status to sulfonamides; Z88.6 Allergy status to analgesic agent; Z88.8 Allergy status to other drugs, medicaments and biological substances; Z91.018 Allergy to other foods; Z91.040 Latex allergy status

== ENCOUNTER → 2020-02-03 | Emergency (ER) | payer OTHER | LOC: ER 23:01 | DX: Z48.01 Encounter for change or removal of surgical wound dressing (principal); Z53.21 Procedure and treatment not carried out due to patient leaving prior to being seen by health care provider ==

== ENCOUNTER 2020-02-09 20:18 | Emergency (ER) | payer OTHER ==
[~2020-02-09] VITALS: Ht 165.1 cm; Wt 83.9 kg
[2020-02-09] MEDS ORDERED: LEVOFLOXACIN500 MG PO (22:53)
[2020-02-09 22:54] LABS: BASOPHILS 0.5 % (0.0-2.0); EOSINOPHILS 1.3 % (0.0-3.0); HEMATOCRIT 44.5 % (37.0-47.0); LYMPHOCYTES 18.4 % (24.0-44.0); MCH 30.7 pg (26.0-34.0); MCHC 33.6 g/dL (28.0-37.0); MCV 91.2 fL (80.0-100.0); PLATELET COUNT 171 thou/uL (150-400); POLYS 69.8 % (36.0-66.0); RBC 4.89 mil/uL (4.20-5.00); RDW 12.8 % (10.5-14.5); WBC 8.6 thou/uL (4.0-11.0)
[2020-02-09] MEDS ORDERED: CYCLOBENZAPRINE10 MG PO (22:54)
[2020-02-09] MEDS ORDERED: TOPROL XL50 MG PO (22:54)
[2020-02-09] MEDS ORDERED: CLONAZEPAM2 M1 PO (22:55)
[2020-02-09 22:58] LABS: CALCIUM 8.5 mg/dL (8.5-10.1); CREATININE 0.7 mg/dL (0.6-1.0); POTASSIUM 3.9 mmol/L (3.5-5.1)
[2020-02-09] MEDS ORDERED: AFREZZA12 UNIT INH (23:03)
[2020-02-09 23:10] LABS: URINE BILIRUBIN NEGATIVE (Negative); URINE BLOOD NEGATIVE (Negative); URINE CLARITY SL CLOUDY; URINE COLOR YELLOW; URINE GLUCOSE-RANDOM* 3+ (Negative); URINE KETONES NEGATIVE (Negative); URINE LEUKOCYTES-REFLEX NEGATIVE (Negative); URINE NITRITE-REFLEX NEGATIVE (Negative); URINE PROTEIN (DIPSTICK) NEGATIVE (Negative)
[2020-02-09 23:11] LABS: ALBUMIN 3.5 g/dL (3.4-5.0); TOTAL BILIRUBIN 0.5 mg/dL (0.2-1.0); TOTAL PROTEIN 7.8 g/dL (6.4-8.2)
[2020-02-09 23:24] LABS: TROPONIN-I <0.06 ng/mL (<0.06)
[2020-02-10 01:37] VITALS: BP 164/120
== END 2020-02-10 01:30 | disposition designated cancer center or children's hospital (05) ==
LOC: ER 20:18
PROVIDERS: Emergency Medicine
DX: A41.9 Sepsis, unspecified organism (principal); N61.0 Mastitis without abscess; E11.9 Type 2 diabetes mellitus without complications; Z79.899 Other long term (current) drug therapy; Z79.4 Long term (current) use of insulin; Z88.0 Allergy status to penicillin; Z88.1 Allergy status to other antibiotic agents; Z88.2 Allergy status to sulfonamides; Z91.018 Allergy to other foods; Z91.048 Other nonmedicinal substance allergy status; Z91.040 Latex allergy status; Z88.8 Allergy status to other drugs, medicaments and biological substances

== ENCOUNTER 2020-02-26 07:21 | Emergency (ER) | payer OTHER ==
[~2020-02-26] VITALS: Ht 165.1 cm; Wt 90.7 kg
[~2020-02-26 07:21] MED LIST changes: +AFREZZA12 UNIT INH; +CLONAZEPAM2 M1 PO; +CYCLOBENZAPRINE10 MG PO; +LEVOFLOXACIN500 MG PO; +TOPROL XL50 MG PO
[2020-02-26 10:37] LABS: ABSOLUTE NEUTROPHILS 3.3 thou/uL (1.4-8.2); BASOPHILS 2.3 % (0.0-2.0); EOSINOPHILS 1.9 % (0.0-3.0); HEMATOCRIT 40.4 % (37.0-47.0); HEMOGLOBIN 13.4 gm/dL (12.0-15.0); LYMPHOCYTES 26.7 % (24.0-44.0); MCHC 33.2 g/dL (28.0-37.0); MCV 90.3 fL (80.0-100.0); MONOCYTES 9.8 % (1.0-8.0); POLYS 59.3 % (36.0-66.0); RBC 4.47 mil/uL (4.20-5.00); RDW 12.7 % (10.5-14.5); WBC 5.6 thou/uL (4.0-11.0)
[2020-02-26 10:49] LABS: CALCIUM 9.1 mg/dL (8.5-10.1); CREATININE 0.8 mg/dL (0.6-1.0)
[2020-02-26 10:55] LABS: ALBUMIN 3.3 g/dL (3.4-5.0); TOTAL BILIRUBIN 0.4 mg/dL (0.2-1.0); TOTAL PROTEIN 7.2 g/dL (6.4-8.2)
[2020-02-26] MEDS ORDERED: NORCO 5-325 TA1 EAC2 PO (12:14)
[2020-02-26] MEDS ORDERED: CLINDAMYCIN HC300 MG PO (12:14)
[2020-02-26 12:28] VITALS: BP 169/97
[2020-02-26 14:43] LABS: PLATELET COUNT 141 thou/uL (150-400)
== END 2020-02-26 12:32 | disposition home or self-care (01) ==
LOC: ER 07:21
PROVIDERS: Emergency Medicine
DX: T81.40XA Infection following a procedure, unspecified, initial encounter (principal); N61.0 Mastitis without abscess; E11.9 Type 2 diabetes mellitus without complications; Z79.2 Long term (current) use of antibiotics; Z79.4 Long term (current) use of insulin; Z79.899 Other long term (current) drug therapy; Z88.0 Allergy status to penicillin; Z88.1 Allergy status to other antibiotic agents; Z88.2 Allergy status to sulfonamides; Z88.8 Allergy status to other drugs, medicaments and biological substances; Z91.018 Allergy to other foods; Z91.040 Latex allergy status

== ENCOUNTER 2020-03-22 21:14 | Emergency (ER) | payer OTHER ==
[~2020-03-22] VITALS: Ht 165.1 cm; Wt 95.3 kg
[~2020-03-22 21:14] MED LIST changes: +CLINDAMYCIN HC300 MG PO
[2020-03-22 22:30] LABS: ABSOLUTE NEUTROPHILS 5.9 thou/uL (1.4-8.2); EOSINOPHILS 1.6 % (0.0-3.0); HEMATOCRIT 42.2 % (37.0-47.0); LYMPHOCYTES 20.4 % (24.0-44.0); MCH 30.2 pg (26.0-34.0); MCHC 33.1 g/dL (28.0-37.0); MCV 91.1 fL (80.0-100.0); MONOCYTES 10.4 % (1.0-8.0); PLATELET COUNT 134 thou/uL (150-400); POLYS 66.6 % (36.0-66.0); RBC 4.63 mil/uL (4.20-5.00); RDW 12.7 % (10.5-14.5); WBC 8.9 thou/uL (4.0-11.0)
[2020-03-22 22:38] LABS: URINE BILIRUBIN NEGATIVE (Negative); URINE BLOOD NEGATIVE (Negative); URINE CLARITY CLEAR; URINE COLOR YELLOW; URINE GLUCOSE-RANDOM* 1+ (Negative); URINE KETONES NEGATIVE (Negative); URINE NITRITE-REFLEX NEGATIVE (Negative); URINE PROTEIN (DIPSTICK) NEGATIVE (Negative); URINE SPECIFIC GRAVITY 1.025 (1.005-1.035); URINE UROBILINOGEN 0.2 E.U./dl (0.2-1.0)
[2020-03-22 22:51] LABS: URINE LEUKOCYTES-REFLEX 1+ (Negative)
[2020-03-22 22:54] LABS: CALCIUM 8.8 mg/dL (8.5-10.1); CREATININE 0.8 mg/dL (0.6-1.0); POTASSIUM 3.9 mmol/L (3.5-5.1)
[2020-03-22 23:00] LABS: ALBUMIN 3.4 g/dL (3.4-5.0); TOTAL BILIRUBIN 0.3 mg/dL (0.2-1.0); TOTAL PROTEIN 7.4 g/dL (6.4-8.2)
[2020-03-22 23:00] LABS: CASTS None Seen /LPF (None Seen); MUCUS 4-6 Moderate strn/LPF (None Seen); SQUAMOUS >10 Many /LPF (0-3)
[2020-03-22 23:01] LABS: BACTERIA-REFLEX 1-9 Few /HPF (None Seen); CRYSTALS None Seen /LPF (None Seen); URINE RBC 0-2 Rare /HPF (0-2)
[2020-03-22] MEDS ORDERED: LOTRIMIN AF12 GM TOP (23:05)
[2020-03-22] MEDS ORDERED: NORCO 10-325 T1 EACH PO (23:05)
[2020-03-22] MEDS ORDERED: KEFLEX500 M1 PO (23:05)
[2020-03-22 23:32] VITALS: BP 130/82
== END 2020-03-22 23:35 | disposition home or self-care (01) ==
LOC: ER 21:14
PROVIDERS: Physician Assistant
DX: N64.4 Mastodynia (principal); N39.0 Urinary tract infection, site not specified; L30.4 Erythema intertrigo; F12.90 Cannabis use, unspecified, uncomplicated; M32.9 Systemic lupus erythematosus, unspecified; M79.7 Fibromyalgia; E11.9 Type 2 diabetes mellitus without complications; Z91.040 Latex allergy status; Z88.1 Allergy status to other antibiotic agents; Z88.6 Allergy status to analgesic agent; Z88.8 Allergy status to other drugs, medicaments and biological substances; Z79.4 Long term (current) use of insulin; Z79.899 Other long term (current) drug therapy

== ENCOUNTER 2020-03-30 20:46 | Emergency (ER) | payer OTHER ==
[~2020-03-30] VITALS: Ht 165.1 cm; Wt 85.7 kg
[~2020-03-30 20:46] MED LIST changes: +KEFLEX500 M1 PO; +LOTRIMIN AF12 GM TOP; +NORCO 10-325 T1 EACH PO
[2020-03-30] MEDS ORDERED: XANAX2 MG PO (21:08)
[2020-03-30] MEDS ORDERED: CLONIDINE HCL0.3 M3 PO (21:09)
[2020-03-30] MEDS ORDERED: CATAPRES0.2 M1 PO (21:09)
[2020-03-30] MEDS ORDERED: LANTUS SUBQ (21:10)
[2020-03-30] MEDS ORDERED: NYSTATIN1000000 UN TOP (21:30)
[2020-03-30 21:51] LABS: AMP/METHAMP Negative (Negative); BARBITURATES Negative (Negative); BENZODIAZEPINES POSITIVE (Negative); COCAINE Negative (Negative); METHADONE Negative (Negative); OPIATES Negative (Negative); PCP Negative (Negative)
[2020-03-30] MEDS ORDERED: HYDROCODON-ACE1 EAC7 PO (22:21)
[2020-03-30 22:44] VITALS: BP 127/75
== END 2020-03-30 22:45 | disposition home or self-care (01) ==
LOC: ER 20:46
PROVIDERS: Physician Assistant
DX: N64.4 Mastodynia (principal); B37.89 Other sites of candidiasis; E11.9 Type 2 diabetes mellitus without complications; Z79.4 Long term (current) use of insulin; Z79.899 Other long term (current) drug therapy; Z88.0 Allergy status to penicillin; Z88.1 Allergy status to other antibiotic agents; Z88.2 Allergy status to sulfonamides; Z88.8 Allergy status to other drugs, medicaments and biological substances; Z91.018 Allergy to other foods; Z88.6 Allergy status to analgesic agent; Z20.828 Contact with and (suspected) exposure to other viral communicable diseases

== ENCOUNTER 2020-04-05 19:26 | Emergency (ER) | payer OTHER ==
[~2020-04-05] VITALS: Ht 172.7 cm; Wt 84.8 kg
[~2020-04-05 19:26] MED LIST changes: +CATAPRES0.2 M1 PO; +NYSTATIN1000000 UN TOP; +XANAX2 MG PO
[2020-04-05 20:53] LABS: ABSOLUTE NEUTROPHILS 2.7 thou/uL (1.4-8.2); BASOPHILS 0.9 % (0.0-2.0); HEMOGLOBIN 15.5 gm/dL (12.0-15.0); LYMPHOCYTES 29.5 % (24.0-44.0); MCH 30.6 pg (26.0-34.0); MCHC 33.7 g/dL (28.0-37.0); MCV 90.8 fL (80.0-100.0); MONOCYTES 11.7 % (1.0-8.0); POLYS 55.9 % (36.0-66.0); RBC 5.07 mil/uL (4.20-5.00); RDW 12.7 % (10.5-14.5); WBC 4.8 thou/uL (4.0-11.0)
[2020-04-05 21:14] LABS: CALCIUM 8.7 mg/dL (8.5-10.1); CREATININE 0.7 mg/dL (0.6-1.0)
[2020-04-05 21:16] LABS: POTASSIUM 4.4 mmol/L (3.5-5.1)
[2020-04-05 21:19] LABS: ALBUMIN 3.7 g/dL (3.4-5.0); TOTAL BILIRUBIN 0.5 mg/dL (0.2-1.0); TOTAL PROTEIN 8.1 g/dL (6.4-8.2)
[2020-04-05 21:21] LABS: PLATELET COUNT 143 thou/uL (150-400)
[2020-04-05 21:22] LABS: LARGE PLATELETS FEW
[2020-04-05] MEDS ORDERED: CATAPRES0.2 M1 PO (22:20)
[2020-04-05 22:24] VITALS: BP 144/78
--- NOTE | 2020-04-07 07:25 | EKG ---
[facility] [place] [address] ELECTROCARDIOGRAM REPORT Name: CAROLANN MCLAUGHLIN [facility] [id number] Admission: 04/05/20 Attend Phys: Discharge: 04/05/20 Date of : 77 Report #: [id number] [facility] ED Test Date: 2020-04-05 Test Time: 20:07:07 Pat Name: CAROLANN MCLAUGHLIN Department: Room: Gender: F Cell Tender: UNKNOWN : 1975 Requested By: Thai Sherman Order Number: [id number] MD: Hema Bui Measurements Intervals [place] Rate: 93 P: 34 MD: 153 QRS: 92 QRSD: 112 T: 25 QT: 411 QTc: 512 Interpretive Statements Sinus rhythm Left posterior fascicular block Abnormal R-wave progression, late transition Prolonged QT interval Compared to ECG 01/04/2020 01:59:06 Left posterior fascicular block now present Prolonged QT interval now present Electronically Signed On 04-07-2020 7:25:39 TOOL MACHINE SETUP OPERATOR by Hema Bui [email or web address] <ELECTRONICALLY SIGNED> By: Hema Bui MD, [facility] 04/07/2025 06 06 Hema Bui MD, FAC /EPI
--- NOTE | 2020-04-07 07:26 | EKG ---
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: UNKNOWN : 1975 Requested By: Thai Sherman Order Number: [id number] MD: Silvio Mcnair Measurements Intervals [place] Rate: 94 P: 26 [place]: 155 QRS: 102 QRSD: 112 T: 25 QT: 398 QTc: 498 Interpretive Statements Sinus rhythm Abnormal R-wave progression, late transition Inferior infarct, old Prolonged QT interval Compared to ECG 04/05/2020 20:07:07 No significant changes found Electronically Signed On 04-07-2020 7:26:23 SAFETY INSTRUCTION POLICE OFFICER by Silvio Mcnair [email or web address] <ELECTRONICALLY SIGNED> By: Silvio Mcnair MD, [facility] 04/07/20725 07 07 Silvio Mcnair MD, FACC /EPI
== END 2020-04-05 22:25 | disposition home or self-care (01) ==
LOC: ER 19:26
PROVIDERS: Emergency Medicine
DX: F29 Unspecified psychosis not due to a substance or known physiological condition (principal); F41.9 Anxiety disorder, unspecified; F19.931 Other psychoactive substance use, unspecified with withdrawal delirium; E11.9 Type 2 diabetes mellitus without complications; Z79.899 Other long term (current) drug therapy; Z79.4 Long term (current) use of insulin; Z88.8 Allergy status to other drugs, medicaments and biological substances; Z88.0 Allergy status to penicillin; Z88.1 Allergy status to other antibiotic agents; Z88.6 Allergy status to analgesic agent; Z88.2 Allergy status to sulfonamides; Z91.040 Latex allergy status; Z91.018 Allergy to other foods

== ENCOUNTER 2020-04-26 09:12 | Emergency (ER) | payer OTHER ==
[~2020-04-26] VITALS: Ht 165.1 cm; Wt 86.2 kg
[2020-04-26 11:35] VITALS: BP 136/91
== END 2020-04-26 11:36 | disposition home or self-care (01) ==
LOC: ER 09:12
DX: T78.40XA Allergy, unspecified, initial encounter (principal); E11.9 Type 2 diabetes mellitus without complications; Z79.899 Other long term (current) drug therapy; Z79.4 Long term (current) use of insulin; Z88.1 Allergy status to other antibiotic agents; Z88.0 Allergy status to penicillin; Z88.2 Allergy status to sulfonamides; Z88.5 Allergy status to narcotic agent; Z88.6 Allergy status to analgesic agent; Z88.8 Allergy status to other drugs, medicaments and biological substances; Z91.018 Allergy to other foods; Y92.89 Other specified places as the place of occurrence of the external cause

== ENCOUNTER 2020-05-05 15:35 | Emergency (ER) | payer OTHER ==
[~2020-05-05] VITALS: Ht 165.1 cm; Wt 95.3 kg
[2020-05-05 17:32] VITALS: BP 140/90
== END 2020-05-05 17:48 | disposition home or self-care (01) ==
LOC: ER 15:35
DX: S80.02XA Contusion of left knee, initial encounter (principal); E11.9 Type 2 diabetes mellitus without complications; Z79.4 Long term (current) use of insulin; Z79.899 Other long term (current) drug therapy; Z88.0 Allergy status to penicillin; Z88.1 Allergy status to other antibiotic agents; Z88.2 Allergy status to sulfonamides; Z88.6 Allergy status to analgesic agent; Z88.8 Allergy status to other drugs, medicaments and biological substances; Z91.018 Allergy to other foods; Z91.040 Latex allergy status; W01.0XXA Fall on same level from slipping, tripping and stumbling without subsequent striking against object, initial encounter; Y93.89 Activity, other specified; Y92.89 Other specified places as the place of occurrence of the external cause; Y99.8 Other external cause status

== ENCOUNTER 2020-05-16 19:13 | Emergency (ER) | payer OTHER ==
[~2020-05-16] VITALS: Ht 167.6 cm; Wt 95.3 kg
[~2020-05-16 19:13] MED LIST changes: +VENTOLIN HFA 1818 GM INH
[2020-05-16 21:01] LABS: ANION GAP 12 mmol/L (7-16); BUN 12 mg/dL (7-18); CALCIUM 8.7 mg/dL (8.5-10.1); CHLORIDE 102 mmol/L (98-107); CO2 25 mmol/L (21-32); CREATININE 0.7 mg/dL (0.6-1.0); GLUCOSE 134 mg/dL (74-106); POTASSIUM 3.5 mmol/L (3.5-5.1); SODIUM 139 mmol/L (136-145)
[2020-05-16 21:13] LABS: ALBUMIN 3.7 g/dL (3.4-5.0); AMYLASE 42 U/L (25-115); DIRECT BILIRUBIN < 0.1 mg/dL (<0.1-0.2); LIPASE 92 U/L (73-393); SGOT 26 U/L (15-37); SGPT 47 U/L (14-59); TOTAL BILIRUBIN 0.3 mg/dL (0.2-1.0); TOTAL PROTEIN 8.1 g/dL (6.4-8.2); TROPONIN-I <0.06 ng/mL (<0.06)
[2020-05-16 21:17] LABS: ABSOLUTE NEUTROPHILS 5.7 thou/uL (1.4-8.2); BASOPHILS 0.7 % (0.0-2.0); EOSINOPHILS 0.4 % (0.0-3.0); MCH 30.5 pg (26.0-34.0); MCV 89.8 fL (80.0-100.0); MONOCYTES 8.1 % (1.0-8.0); PLATELET COUNT 145 thou/uL (150-400); POLYS 75.8 % (36.0-66.0); RDW 12.5 % (10.5-14.5); WBC 7.5 thou/uL (4.0-11.0)
[2020-05-16] MEDS ORDERED: ALPRAZOLAM2 MG PO (21:36)
[2020-05-16] MEDS ORDERED: CLONIDINE HCL0.3 M3 PO (21:37)
[2020-05-16] MEDS ORDERED: NORCO5 PO (21:39)
[2020-05-16] MEDS ORDERED: PAROXETINE HCL10 MG PO (21:39)
[2020-05-16 21:43] LABS: URINE BILIRUBIN NEGATIVE (Negative); URINE BLOOD NEGATIVE (Negative); URINE CLARITY CLOUDY; URINE COLOR YELLOW; URINE GLUCOSE-RANDOM* TRACE (Negative); URINE KETONES TRACE (Negative); URINE NITRITE-REFLEX NEGATIVE (Negative); URINE PROTEIN (DIPSTICK) 1+ (Negative); URINE SPECIFIC GRAVITY 1.015 (1.005-1.035); URINE UROBILINOGEN 0.2 E.U./dl (0.2-1.0)
[2020-05-16 21:55] LABS: URINE LEUKOCYTES-REFLEX 3+ (Negative)
[2020-05-16 21:56] LABS: CASTS None Seen /LPF (None Seen); CRYSTALS None Seen /LPF (None Seen); MUCUS 4-6 Moderate strn/LPF (None Seen); SQUAMOUS >10 Many /LPF (0-3); URINE RBC 3-10 Few /HPF (0-2)
[2020-05-16] MEDS ORDERED: BENTYL 10 MG CA10 M1 PO (21:57)
[2020-05-16] MEDS ORDERED: ZOFRAN ODT4 MG PO (21:57)
[2020-05-16 22:07] VITALS: BP 178/85
--- NOTE | 2020-05-19 07:21 | EKG ---
[facility] [place] [address] ELECTROCARDIOGRAM REPORT Name: CAROLANN MCLAUGHLIN [facility] [id number] Admission: 05/16/20 Attend Phys: Discharge: 05/16/20 Date of : 77 Report #: [id number] [facility] Test Date: 2020-05-16 Test Time: 19:58:57 Pat Name: CAROLANN MCLAUGHLIN Department: Room: Gender: F Medication Aid: JAYLIN POOLE : 1975 Requested By: John Mayer Order Number: [id number] MD: Hema Bui Measurements Intervals [place] Rate: 86 P: 64 [place]: 162 QRS: 85 QRSD: 108 T: 15 QT: 400 QTc: 479 Interpretive Statements Sinus rhythm Abnormal R-wave progression, late transition Inferior infarct, old Baseline wander in lead(s) V6 Compared to ECG 04/05/2020 20:08:04 Prolonged QT interval no longer present Myocardial infarct finding still present Electronically Signed On 05-19-2020 7:20:55 CDT by Hema Bui [email or web address] <ELECTRONICALLY SIGNED> By: Hema Bui MD, [facility] 05/19/20719 57 57 Hema Bui MD, [facility] /EPI
== END 2020-05-16 22:15 | disposition home or self-care (01) ==
LOC: ER 19:13
PROVIDERS: Emergency Medicine
DX: E11.649 Type 2 diabetes mellitus with hypoglycemia without coma (principal); R11.2 Nausea with vomiting, unspecified; R10.9 Unspecified abdominal pain; M79.7 Fibromyalgia; E66.01 Morbid (severe) obesity due to excess calories; Z88.1 Allergy status to other antibiotic agents; Z88.0 Allergy status to penicillin; Z88.2 Allergy status to sulfonamides; Z91.040 Latex allergy status; Z88.8 Allergy status to other drugs, medicaments and biological substances; Z79.899 Other long term (current) drug therapy; Z79.4 Long term (current) use of insulin

== ENCOUNTER 2020-05-17 23:17 | Emergency (ER) | payer OTHER ==
[~2020-05-17] VITALS: Ht 165.1 cm; Wt 91.2 kg
[~2020-05-17 23:17] MED LIST changes: +BENTYL 10 MG CA10 M1 PO; +NORCO5 PO; +PAROXETINE HCL10 MG PO
[2020-05-18 01:15] VITALS: BP 164/92
== END 2020-05-18 01:14 | disposition home or self-care (01) ==
LOC: ER 23:17
DX: M79.602 Pain in left arm (principal); E11.9 Type 2 diabetes mellitus without complications; Z79.4 Long term (current) use of insulin; Z79.899 Other long term (current) drug therapy; Z88.0 Allergy status to penicillin; Z88.6 Allergy status to analgesic agent; Z88.2 Allergy status to sulfonamides; Z91.018 Allergy to other foods; Z88.1 Allergy status to other antibiotic agents

== ENCOUNTER 2020-06-06 14:13 | Emergency (ER) | payer OTHER ==
[~2020-06-06] VITALS: Ht 165.1 cm; Wt 95.3 kg
[2020-06-06] MEDS ORDERED: B COMPLEX1 EACH PO (14:55)
--- NOTE | 2020-06-06 14:55 | EKG ---
[place] [address] [employer] [place] [address] ELECTROCARDIOGRAM REPORT Name: CAROLANN MCLAUGHLIN Room #: [facility].#: [id number] Admission: Attend Phys: Discharge: Date of : 77 Report #: [id number] [facility] ED Test Date: 2020-06-06 Test Time: 14:20:52 Pat Name: CAROLANN MCLAUGHLIN Department: Room: Gender: F Inspector Of Dredging: CHRIS : 1975 Requested By: Gareth Cosme Order Number: [id number] MD: Kofi Williamson Measurements Intervals [place] Rate: 87 P: 53 [place]: 145 QRS: 101 QRSD: 106 T: 11 QT: 406 QTc: 489 Interpretive Statements Sinus rhythm Left posterior fascicular block Abnormal R-wave progression, late transition Inferior infarct, old Baseline wander in lead(s) V2,V6 Compared to ECG 05/16/2020 19:58:57 Electronically Signed On 06-06-2020 14:55:41 CDT by Kofi Williamson [email or web address] <ELECTRONICALLY SIGNED> By: Kofi Williamson MD 06/06/20 1455 1420 1420 Kofi Williamson MD /THAILA
[2020-06-06] MEDS ORDERED: CLONIDINE1 EACH TRANSDERM (14:58)
[2020-06-06 15:18] LABS: ABSOLUTE NEUTROPHILS 4.1 thou/uL (1.4-8.2); BASOPHILS 1.1 % (0.0-2.0); EOSINOPHILS 0.7 % (0.0-3.0); HEMOGLOBIN 14.5 gm/dL (12.0-15.0); LYMPHOCYTES 21.6 % (24.0-44.0); MCH 31.3 pg (26.0-34.0); MCHC 34.5 g/dL (28.0-37.0); MCV 90.7 fL (80.0-100.0); POLYS 66.6 % (36.0-66.0); RBC 4.63 mil/uL (4.20-5.00); RDW 13.1 % (10.5-14.5); WBC 6.2 thou/uL (4.0-11.0)
[2020-06-06 15:36] LABS: CALCIUM 8.9 mg/dL (8.5-10.1); CREATININE 0.8 mg/dL (0.6-1.0); POTASSIUM 3.8 mmol/L (3.5-5.1)
[2020-06-06 15:41] LABS: ALBUMIN 3.7 g/dL (3.4-5.0); TOTAL BILIRUBIN 0.3 mg/dL (0.2-1.0)
[2020-06-06 15:44] LABS: LARGE PLATELETS RARE; PLATELET COUNT 158 thou/uL (150-400)
[2020-06-06 16:15] LABS: URINE BILIRUBIN NEGATIVE (Negative); URINE BLOOD NEGATIVE (Negative); URINE CLARITY CLEAR; URINE COLOR YELLOW; URINE GLUCOSE-RANDOM* 3+ (Negative); URINE KETONES NEGATIVE (Negative); URINE NITRITE-REFLEX NEGATIVE (Negative); URINE PROTEIN (DIPSTICK) NEGATIVE (Negative); URINE SPECIFIC GRAVITY 1.025 (1.005-1.035); URINE UROBILINOGEN 0.2 E.U./dl (0.2-1.0)
[2020-06-06 16:17] LABS: URINE LEUKOCYTES-REFLEX 1+ (Negative)
[2020-06-06 16:30] LABS: BACTERIA-REFLEX >30 Many /HPF (None Seen); CASTS None Seen /LPF (None Seen); CRYSTALS None Seen /LPF (None Seen); SQUAMOUS 4-10 Moderate /LPF (0-3); URINE RBC None Seen /HPF (0-2); URINE WBC-REFLEX 6-15 Few /HPF (0-5)
[2020-06-06] MEDS ORDERED: MACROBID 100 M100 M1 PO (16:46)
[2020-06-06 17:04] VITALS: BP 204/97
== END 2020-06-06 17:04 | disposition home or self-care (01) ==
LOC: ER 14:13
PROVIDERS: Nurse Practitioner
DX: R51.9 Headache, unspecified (principal); R11.2 Nausea with vomiting, unspecified; R06.02 Shortness of breath; E11.9 Type 2 diabetes mellitus without complications; Z79.4 Long term (current) use of insulin; Z79.899 Other long term (current) drug therapy; Z88.0 Allergy status to penicillin; Z88.1 Allergy status to other antibiotic agents; Z88.6 Allergy status to analgesic agent; Z88.8 Allergy status to other drugs, medicaments and biological substances; Z91.018 Allergy to other foods; Z91.040 Latex allergy status; Z20.822 Contact with and (suspected) exposure to COVID-19

== ENCOUNTER 2020-07-10 20:59 | Emergency (ER) | payer OTHER ==
[~2020-07-10] VITALS: Ht 165.1 cm; Wt 89.8 kg
--- NOTE | ~2020-07-10 | EMS ---
[address] [address] EMS Patient Care Report Name: CAROLANN MCLAUGHLIN Room #: REG [facility]ONDRE Early#: [id number] Admission: 07/10/20 Attend Phys: Discharge: Date of : 77 Report #: [id number] THIS REPORT FOR: //name// Report Transmitted: 07/10/2020 21:35 EMS Care Summary [place], [place]/[facility] Incident [id number] @ 07/10/2020 20:29 Incident Location [address] [place] [address] Patient CAROLANN MCLAUGHLIN Female, 45 Years 1975 Patient Address [address] [place] [address] Patient History Other,Diabetes,Fibromyalgia,Lupus,Post Traumatic Stress Disorder (PTSD), Patient Allergies Aspirin,Latex allergy,Penicillin allergy,Phenergan,Other drug allergy,Cipro,Metformin, Patient Medications Clonidine, Lisinopril, Zofran, Cyclobenzaprine, Insulin, Clonazepam, Levofloxacin, Chief Complaint SOA Disposition Transported No Lights/[place] Reason Allergic Reaction/Stings Transported To [facility] Narrative RESPONDED TO ALLERGIES AT [facility]OWN HOME. UPON ARRIVAL PT FOUND SITTING ON EDGE OF BED ALERT AND ORIENTED. PT IS BREATHING HEAVILY AND APPEARS ANXIOUS. PT REPORTS [address] [address] EMS Patient Care Report Name: CAROLANN MCLAUGHLIN Room #: REG DEONDRE Early#: [id number] Admission: 07/10/20 Attend Phys: Discharge: Date of : 77 Report #: [id number] USING AN ANTI INFLAMMORY TOPICAL CREAM ON HER KNEE BUT FEELING SHORT OF BREATH APRROX 20 MINUTES LATER. PT SELF ADMINISTERED HER EPI PEN [employer]UST[employer]AL M[employer]WR[employer] OF EMS BUT IT WAS OF DECEMBER 2019. PT VITALS OBTAINED AND STABLE ON SCENE. PT ASSISTED TO COT NEARBY. 3 LEAD OBTAINED AND IV ATTEMPTED, PT IS VERY HARD STICK SO NO MORE ATTEMPTS MADE. PT TRANSPORTED TO [facility]. PT APPEARS MORE CALM AND BREATHING NORMAL EN ROUTE. PT SCOOTED TO BED AND HANDRAILS UP. REPORT GIVEN TO NURSE. Initial Vitals @20:44P: 109,BP: 177/81,CO: 1,SpO2: 98, @20:45P: 109, @20:39P: 118,R: 22,BP: 209/94,Pain: 0/10,GCS: 15,Glucose: 121,SpO2: 96,Revised Trauma: 12, @20:51P: 110,R: 20,BP: 190/97,GCS: 15,CO: 8,SpO2: 97,Revised Trauma: 12, Assessments @20:37MENTAL:Person Oriented,Time Oriented,Event Oriented,Place Oriented,SKIN:HEENT:Head/Face: No Abnormalities,Eyes: No Abnormalities,Neck/Airway: No Abnormalities,LUNG SOUNDS:General: No Abnormalities,Left Upper: No Abnormalities,Right Upper: No Abnormalities,Left Lower: No Abnormalities,Right Lower: No Abnormalities,ABDOMEN:General: No Abnormalities,Left Upper: No Abnormalities,Right Upper: No Abnormalities,Left Lower: No Abnormalities,Right Lower: No Abnormalities,PELVIS//GI:No Abnormalities,EXTREMITIES:Left Arm: No Abnormalities,Right Arm: No Abnormalities,Left Leg: No Abnormalities,Right Leg: No Abnormalities,PULSE:NEURO:No Abnormalities,@20:42MENTAL:Place Oriented,Person Oriented,Time Oriented,Event Oriented,SKIN:HEENT:Head/Face: No Abnormalities,Eyes: No Abnormalities,Neck/Airway: No Abnormalities,LUNG SOUNDS:General: No Abnormalities,Left Upper: No Abnormalities,Right Upper: No Abnormalities,Left Lower: No Abnormalities,Right Lower: No Abnormalities,ABDOMEN:General: No Abnormalities,Left Upper: No Abnormalities,Right Upper: No Abnormalities,Left Lower: No Abnormalities,Right Lower: No Abnormalities,PELVIS//GI:No Abnormalities,EXTREMITIES:Left Arm: No Abnormalities,Right Arm: No Abnormalities,Left Leg: No Abnormalities,Right Leg: No Abnormalities,PULSE:NEURO:No Abnormalities, Impression Allergic Reaction Procedures @20:42Saline Lock 0cc (22 ga) Site: Antecubital-RightResponse: UnchangedFailed@20:37ALS AssessmentResponse: UnchangedSucceeded@20:393-Lead ECGResponse: UnchangedSucceeded Timeline 20:27,Call Received [address] [address] EMS Patient Care Report Name: ARNOLDOCAROLANN Paty Room #: REG DEONDRE Early#: [id number] Admission: 07/10/20 Attend Phys: Discharge: Date of : 77 Report #: [id number] 20:27,Dispatch Notified 20:29,Dispatched 20:30,En Route 20:35,On Scene 20:37,At Patient 20:37,ALS Assessment,Response: UnchangedSucceeded, 20:39,3-Lead ECG,Response: UnchangedSucceeded, 20:39,BP: 209/94 M,PULSE: 118,RR: 22 R,SPO2: 96 Ox,ETCO2: ,B,PAIN: 0,GCS: 15, 20:42,Saline Lock 0cc 22 ga Site: Antecubital-Right,Response: UnchangedFailed, 20:44,BP: 177/81 M,PULSE: 109,RR: R,SPO2: 98 Ox,ETCO2: ,BG: ,PAIN: ,GCS: , 20:45,BP: / M,PULSE: 109,RR: R,SPO2: Ox,ETCO2: ,BG: ,PAIN: ,GCS: , 20:49,Depart Scene 20:51,BP: 190/97 M,PULSE: 110,RR: 20 R,SPO2: 97 Ox,ETCO2: ,BG: ,PAIN: ,GCS: 15, 20:55,At Destination 21:10,Call Closed Disclaimer v1.1 Copyright 2020 [employer] This EMS Care Summary contains data elements from the applicable legal record (which may be displayed differently). It is designed to provide pertinent information for the following purposes: continuity of care, clinical quality, and state data reporting. The complete legal record is available to ED staff and administrators of the receiving hospital in [employer] Patient Tracker. All data is provided "as is."
[~2020-07-10 20:59] MED LIST changes: +B COMPLEX1 EACH PO; +CLONIDINE1 EACH TRANSDERM
[2020-07-10 21:48] LABS: ABSOLUTE NEUTROPHILS 3.3 thou/uL (1.4-8.2); BASOPHILS 1.2 % (0.0-2.0); EOSINOPHILS 1.4 % (0.0-3.0); HEMATOCRIT 42.5 % (37.0-47.0); HEMOGLOBIN 14.5 gm/dL (12.0-15.0); LYMPHOCYTES 33.8 % (24.0-44.0); MCH 31.3 pg (26.0-34.0); MCV 91.9 fL (80.0-100.0); MONOCYTES 10.9 % (1.0-8.0); PLATELET COUNT 147 thou/uL (150-400); POLYS 52.7 % (36.0-66.0); RBC 4.62 mil/uL (4.20-5.00); RDW 12.7 % (10.5-14.5); WBC 6.3 thou/uL (4.0-11.0)
[2020-07-10 21:49] LABS: ANION GAP 13 mmol/L (7-16); BUN 15 mg/dL (7-18); CALCIUM 8.5 mg/dL (8.5-10.1); CHLORIDE 104 mmol/L (98-107); CO2 23 mmol/L (21-32); CREATININE 0.8 mg/dL (0.6-1.0); GLUCOSE 163 mg/dL (74-106); POTASSIUM 3.9 mmol/L (3.5-5.1); SODIUM 140 mmol/L (136-145)
[2020-07-10 21:59] LABS: ALBUMIN 3.6 g/dL (3.4-5.0); SGOT 31 U/L (15-37); SGPT 72 U/L (30-65); TOTAL BILIRUBIN 0.3 mg/dL (0.2-1.0); TOTAL PROTEIN 7.7 g/dL (6.4-8.2); TROPONIN-I <0.06 ng/mL (<0.06)
[2020-07-10 22:44] VITALS: BP 161/87
--- NOTE | 2020-07-11 06:48 | EKG ---
[place] [address] [facility] [place] [address] ELECTROCARDIOGRAM REPORT Name: CAROLANN MCLAUGHLIN [facility] [id number] Admission: 07/10/20 Attend Phys: Discharge: 07/10/20 Date of : 77 Report #: [id number] [facility] ED Test Date: 2020-07-10 Test Time: 21:07:33 Pat Name: CAROLANN MCLAUGHLIN Department: Room: Gender: F Russian History Professor: MARIA C : 1975 Requested By: Douglas Solis Order Number: [id number] MD: Hema Bui Measurements Intervals [place] Rate: 105 P: [place]: QRS: 89 QRSD: 110 T: 6 QT: 363 QTc: 480 Interpretive Statements NSR Inferior infarct, old Baseline wander in lead(s) V3,V5 Compared to ECG 06/06/2020 14:20:52 Sinus rhythm no longer present Left posterior fascicular block no longer present Myocardial infarct finding still present Electronically Signed On 07-11-2020 6:48:42 CDT by Hema Bui [email or web address] <ELECTRONICALLY SIGNED> By: Hema Bui MD, [facility] 07/11/20 0648 06 06 Hema Bui MD, [facility] /EPI
== END 2020-07-10 22:44 | disposition home or self-care (01) ==
LOC: ER 20:59
PROVIDERS: Physician Assistant
DX: R06.02 Shortness of breath (principal); T39.395A Adverse effect of other nonsteroidal anti-inflammatory drugs [NSAID], initial encounter; F41.9 Anxiety disorder, unspecified; R00.2 Palpitations; R07.89 Other chest pain; M79.7 Fibromyalgia; E11.9 Type 2 diabetes mellitus without complications; E66.01 Morbid (severe) obesity due to excess calories; Z68.32 Body mass index [BMI] 32.0-32.9, adult; Z79.2 Long term (current) use of antibiotics; Z79.4 Long term (current) use of insulin; Z79.899 Other long term (current) drug therapy; Z88.8 Allergy status to other drugs, medicaments and biological substances; Z88.6 Allergy status to analgesic agent; Z88.0 Allergy status to penicillin; Z88.2 Allergy status to sulfonamides; Z91.018 Allergy to other foods; Z91.040 Latex allergy status; Z88.1 Allergy status to other antibiotic agents; Y92.89 Other specified places as the place of occurrence of the external cause